=== PATIENT | male | born 1940 | race Caucasian/White ===

== ENCOUNTER 2016-11-09 15:34 | Inpatient (IN) | payer OTHER, MEDICARE ==
[~2016-11-09] VITALS: Ht 185.4 cm; Wt 108.9 kg
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
--- NOTE | 2016-11-09 16:00 | NUR ---
IV EST AND BLOOD WALKED TO LAB. PT EVALUATED BY ABHIJIT.
[2016-11-09 16:07] LABS: ABSOLUTE BASOPHIL COUNT 0.1 /CUMM (0.0-0.2); ABSOLUTE EOSINOPHIL COUNT 0 /CUMM (0.0-0.7); ABSOLUTE GRANULOCYTE CT 14.3 /CUMM (1.4-6.5); ABSOLUTE LYMPH COUNT 2.6 /CUMM (1.2-3.4); ABSOLUTE MONOCYTE COUNT 1.2 /CUMM (0.10-0.60); BASOPHIL % 0.5 % (0.0-2.0); EOSINOPHIL % 0.1 % (0-5); GRANULOCYTE % 78.6 % (42.2-75.2); HEMATOCRIT 47.3 % (42-52); MEAN CORPUSCULAR HGB 30.6 PG (27.0-31.0); MEAN CORPUSCULAR HGB CONC 32.1 G/DL (33.0-37.0); MEAN CORPUSCULAR VOLUME 95.4 FL (80.0-94.0); MEAN PLATELET VOLUME 8.4 FL (7.4-10.4); PLATELET COUNT 213 /CUMM (130-400); RBC DISTRIBUTION WIDTH 16.9 % (11.5-14.5); RED BLOOD CELL CT 4.95 /CUMM (4.70-6.10); WHITE BLOOD CELL COUNT 18.2 /CUMM (4.8-10.8)
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
--- NOTE | 2016-11-09 16:39 | NUR ---
CRITICAL TEST RESULTS [id number] CINDY PALMER 76 M TESTS AND RESULTS: LACTIC ACID 2.2 Results received and read back by: ROSELIA WADE Results received date and time: 11/09/16 4639 The following provider was notified of the results, and read the results back: GIORGIO Notified date and time: 11/09/16 at 1631
--- NOTE | 2016-11-09 17:16 | NUR ---
CARDIZEM GIVEN, HR 130S-180S PRIOR, AFTER CARDIZEM HR 100-170. PCXR AT BEDSIDE. UNASYN INFUSING, PT WAS AGREEABLE TO MED AND OFFERED NO OBJECTION.
--- NOTE | 2016-11-09 17:44 | RADIOLOGY REPORT ---
EXAMINATION: XR PORTABLE CHEST CLINICAL INFORMATION: Altered mental status. COMPARISON: None. TECHNIQUE: Portable frontal view of the chest was obtained. FINDINGS: The lungs are mildly hypoinflated, but otherwise without focal airspace consolidation. No pleural effusions or pneumothoraces are identified. Mediastinal contours are within normal limits. Prominence of the cardiac silhouette may reflect underlying cardiomegaly versus prominence of the cardiac silhouette secondary to portable technique. Soft tissues are unremarkable. No acute osseous abnormality is identified. IMPRESSION: No acute pulmonary process. Prominence of the cardiac silhouette. This may represent underlying cardiomegaly or may be secondary to technique. No overt pulmonary edema.
[2016-11-09] MEDS ORDERED: NARCAN4 MG NAS (18:49)
--- NOTE | 2016-11-09 18:49 | NUR ---
CARDIOLOGY AT BEDSIDE.
[2016-11-09] MEDS ORDERED: LAMICTAL100 M2 PO (18:50)
[2016-11-09] MEDS ORDERED: LASIX40 M1 PO (18:50)
[2016-11-09] MEDS ORDERED: ACEPHEN650 M1 PR (18:51)
[2016-11-09] MEDS ORDERED: LASIX20 M1 PO (18:51)
[2016-11-09] MEDS ORDERED: PHARBETOL325 MG PO (18:52)
[2016-11-09] MEDS ORDERED: MELATONIN3 M4 PO (18:53)
[2016-11-09] MEDS ORDERED: DULCOLAX10 M1 RC (18:54)
[2016-11-09] MEDS ORDERED: MILK OF MA400 MG/52 PO (18:54)
[2016-11-09] MEDS ORDERED: FLEET ENEMA133 ML RC (18:54)
[2016-11-09 18:57] LABS: PTT 30 SEC (25-37)
--- NOTE | 2016-11-09 19:00 | NUR ---
CARDIZEM GTT STARTED AT 5MG/HR, HEPARIN STARTED AT MAX OF 26CC/HR.
--- NOTE | 2016-11-09 19:21 | Cons- Cardiology ---
General Information and HPI Consulting Request Date of Consult: 11/09/16 Requested By: ABHIJIT De Anda Reason for Consult: Rapid atrial fibrillation in a patient who presents with bilateral leg cellulitis. Source of Information: patient, old records Exam Limitations: confusion, poor historian History of Present Illness: The patient is a 76-year-old male who apparently has never been to [facility] before. He was transferred from [facility] for cellulitis of the legs. He carries diagnosis of psychosis, cardiomyopathy, chronic ischemic heart disease, hypertension, heart failure unspecified, hyperlipidemia, unspecified. The patient tells me was hospitalized at [facility] and [facility] in 2002 but he cannot tell me any details or whether he had any cardiac issues at that time. However he does admit to having 3 stents and also a pacemaker. I researched the pacemaker and found that it was implanted in 2008 at the [facility] but other details are unknown. When the patient arrived at the emergency department tonight he was found to be in rapid atrial fibrillation on the monitor. There are no old EKGs for comparison. He has been given Cardizem boluses and started on Cardizem drip and is to be started on heparin drip. The patient denies any chest pain or shortness of breath or palpitations. He cannot give a coherent history of his cellulitis either. Allergies/Medications Allergies: Coded Allergies: atorvastatin (UNKNOWN 11/09/16) ramipril (UNKNOWN 11/09/16) Home Med List: Acetaminophen (Acephen) 650 MG SUPP.RECT 1 SUPP NM Q6H PRN PAIN/TEMP>101 ( Reported) Acetaminophen (Pharbetol) 325 MG TABLET 2 TAB PO Q6H PRN PAIN/TEMP>101 ( Reported) Bisacodyl (Dulcolax) 10 MG SUPP.RECT 1 SUP RC DAILY PRN CONSTIPATION ( Reported) Furosemide (Lasix) 20 MG TABLET 1 TAB PO 14OO CHF (Reported) Furosemide (Lasix) 40 MG TABLET 1 TAB PO DAILY DIURETIC (Reported) Lamotrigine (Lamictal) 100 MG TABLET 1 TAB PO DAILY ? / PSYCHOSIS/SEIZURES ( Reported) Magnesium Hydroxide (Milk Of Magnesia) 400 MG/5 ML ORAL.SUSP 30 ML PO Q3D PRN CONSTIPATION (Reported) Melatonin 3 MG TABLET 1 TAB PO DAILY PRN SUPPLEMENT (Reported) Na Phos,M-B/Na Phos,Di-Ba (Fleet Enema) 19 GRAM-7 GRAM/118 ML ENEMA 1 E RC PRN CONSTIPATION (Reported) Naloxone HCl (Narcan) 4 MG/ACTUATION SPRAY 4 MG ALISON AD PRN OPIOID INDUCED RESP. DEPRESSIO (Reported) Review of Systems Review of Systems: Unobtainable from the patient at this time Past History Travel History Traveled to [place] past 21 day No Medical History Cardiovascular: AFIB, CAD, CHF, Pacemaker Psychiatric: schizophrenia Other Medical Hx: Type 2 diabetes, constipation, unspecified psychosis, cardiomyopathy, chronic ischemic heart disease, heart failure unspecified, hypertension, hyperlipidemia Surgical History Surgical History: unobtainable Psychosocial History Where Do You Live? Long Term Facility Smoking Status: Unknown If Ever Smoked Exam & Diagnostic Data Vital Signs and I&O Vital Signs Date Time Temp Pulse Resp B/P B/P Pulse O2 O2 Flow FiO2 Mean Ox Delivery Rate 11/09 1849 100.0 148 20 164/91 11/09 1848 148 164/91 11/09 1800 100.0 127 20 126/74 11/09 1756 100.0 127 20 126/74 95 Room Air 11/09 1709 167 20 107/83 11/09 1707 126 20 107/83 95 Room Air 11/09 1535 98.6 163 18 113/56 93 Room Air Intake & Output 11/09 1600 11/09 0800 11/09 0000 / 1600 11/08 0800 11/08 0000 Intake Total Output Total Balance Patient 240 lb Weight Physical Exam: This is an obese elderly male who is awake alert but disoriented and confused HEENT exam grossly normal Chest clear to limited exam. There is a pacemaker present in the left upper anterior chest wall. It is well-healed. Heart PMI not palpable, heart sounds soft, rapid irregular rhythm with no murmurs Abdomen is benign Extremities reveal erythema and chronic skin changes from the feet to the knees bilaterally. Labs/Bebo Results: Laboratory Tests 11/09 1557 Chemistry Sodium (137 - 145 mmol/L) 138 Potassium (3.5 - 5.1 mmol/L) 5.0 Chloride (98 - 107 mmol/L) 98 Carbon Dioxide (22 - 30 mmol/L) 28 Anion Gap (5 - 16) 12 BUN (9 - 20 mg/dL) 34 H Creatinine (0.7 - 1.2 mg/dL) 1.4 H Estimated GFR (>60 ml/min) 49 L BUN/Creatinine Ratio (7 - 25 %) 24.3 Glucose (65 - 99 mg/dL) 93 Lactic Acid (0.7 - 2.1 mmol/L) 2.2 H Calcium (8.4 - 10.2 mg/dL) 10.1 Total Bilirubin (0.2 - 1.3 mg/dL) 3.1 H AST (17 - 59 U/L) 25 ALT (21 - 72 U/L) 43 Alkaline Phosphatase (< 127 U/L) 112 Total Protein (6.3 - 8.2 g/dL) 6.5 Albumin (3.5 - 5.0 g/dL) 4.0 Globulin (1.9 - 4.2 gm/dL) 2.5 Albumin/Globulin Ratio (1.1 - 2.2 %) 1.6 Coagulation PT (9.4 - 12.5 SEC) 13.0 H INR (0.90 - 1.17) 1.24 H APTT (25 - 37 SEC) 30 Hematology CBC w Diff NO MAN DIFF REQ WBC (4.8 - 10.8 /CUMM) 18.2 H RBC (4.70 - 6.10 /CUMM) 4.95 Hgb (14.0 - 18.0 G/DL) 15.2 Hct (42 - 52 %) 47.3 MCV (80.0 - 94.0 FL) 95.4 H MCH (27.0 - 31.0 PG) 30.6 RDW (11.5 - 14.5 %) 16.9 H Plt Count (130 - 400 /CUMM) 213 MPV (7.4 - 10.4 FL) 8.4 Gran % (42.2 - 75.2 %) 78.6 H Lymphocytes % (20.5 - 51.1 %) 14.0 L Monocytes % (1.7 - 9.3 %) 6.8 Eosinophils % (0 - 5 %) 0.1 Basophils % (0.0 - 2.0 %) 0.5 Absolute Granulocytes (1.4 - 6.5 /CUMM) 14.3 H Absolute Lymphocytes (1.2 - 3.4 /CUMM) 2.6 Absolute Monocytes (0.10 - 0.60 /CUMM) 1.2 H Absolute Eosinophils (0.0 - 0.7 /CUMM) 0 Absolute Basophils (0.0 - 0.2 /CUMM) 0.1 PUBS MCHC (33.0 - 37.0 G/DL) 32.1 L Diagnostic Data EKG Results EKG shows atrial fibrillation at a rate of 137 with nonspecific T-wave abnormalities and poor R-wave progression. CXR Results PATIENT: CINDY PALMER PRESENT AGE: 76 PATIENT ACCOUNT NO: [id number] : 39 LOCATION: [facility], [place] ORDERING PHYSICIAN: NICOLASA LACEY SERVICE DATE: 11/09/16 EXAM TYPE: RAD - XRY-PORTABLE CHEST XRAY EXAMINATION: XR PORTABLE CHEST CLINICAL INFORMATION: Altered mental status. COMPARISON: None. TECHNIQUE: Portable frontal view of the chest was obtained. FINDINGS: The lungs are mildly hypoinflated, but otherwise without focal airspace consolidation. No pleural effusions or pneumothoraces are identified. Mediastinal contours are within normal limits. Prominence of the cardiac silhouette may reflect underlying cardiomegaly versus prominence of the cardiac silhouette secondary to portable technique. Soft tissues are unremarkable. No acute osseous abnormality is identified. IMPRESSION: No acute pulmonary process. Prominence of the cardiac silhouette. This may represent underlying cardiomegaly or may be secondary to technique. No overt pulmonary edema. DICTATED BY: MARAL MELTON MD DATE/TIME DICTATED:11/09/161739 ASSISTANT CHILD CARE TEACHER:JETHRO DATE/TIME TRANSCRIBED:11/09/161739 CONFIDENTIAL, DO NOT COPY WITHOUT APPROPRIATE AUTHORIZATION. <Electronically signed in Other Vendor System> SIGNED BY: MARAL MELTON MD 11/09/161743 Assessment/Plan Assessment/Plan The patient is a 76-year-old man who presents with cellulitis. He was found somewhat incidentally to have rapid atrial fibrillation on the monitor. There is an alleged history of heart disease on the W-10 but the patient can give no coherent details. He has marked cardiomegaly on his chest x-ray but no evidence of congestive heart failure. There is also a pacemaker present on the chest x- ray about which no details are known regarding the indications. However I was able to find out that this device was implanted on 10/17/2008 at the [facility] in [place]. It is a [employer]tronic dual chamber device, Adapta [id number], S# [id number]. At this point the recommendation is to control his heart rate with intravenous Cardizem. He has also been started on IV heparin, which is reasonable. An echocardiogram will be very helpful in sorting out his cardiac status. I would make significant efforts to get some old records on him either through the family, the retirement or trying [facility] and the [facility] where he was apparently hospitalized previously. I will interrogate his pacemaker to determine battery life etc. Consult Acknowledgment - Thank you for your consult request.
--- NOTE | 2016-11-09 19:53 | NUR ---
BED ASSIGNMENT [id number]
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
--- NOTE | 2016-11-09 21:55 | Admission Certification ---
Admission Certification Certification Statement - As attending physician, I certify that at the time of - admission, based on clinical presentation, severity of - symptoms, need for further diagnostic testing and - therapeutic interventions, and risk of adverse outcomes - without in-hospital treatment, in my clinical assessment, - this patient requires an acute hospital stay for a minimum - of two nights or longer. I have also considered psychsocial - factors such as support system, advanced age, financial - issues, cognitive issues, and failed out-patient treatments, - past re-admission history, safety of patient, and lack of - compliance as applicable. Specific rationale supporting this admission is: Atrial fibrillation with rapid ventricular response. Sepsis secondary to RLE cellulitis.
--- NOTE | 2016-11-09 22:00 | NUR ---
HOUSE STAFF AT BEDSIDE. ONGOING LABILE HR 110S-150S, LOPRESSOR GIVEN, HR SOMEWHAT IMPROVED TO 100S-150S. CARDIZEM AT 7.5, WILL CONT THIS FOR NOW. HOUSE STAFF MADE AWARE OF NEW INFORMATION ABOUT MEDICAL HX AND THAT PT IS CONSERVED BY [facility]. BIPEDAL PULSES DOPPLERABLE AT THIS TIME. CELLULTIS AREAS OUTLINED. PT CONTS TO REFUSE TO CHANGE INTO GOWN, REFUSES TO ALLOW FULL SKIN CHECK AND REFUSES GUIAC.
--- NOTE | 2016-11-09 22:29 | NUR ---
MEDICATED WITH LASIX/APAP PER EMAR. AFTER LOPRESSOR HR 110S-150S. PER DR MARROQUIN, WOULD INCREASE CARDIZEM GTT TO 10MG/HR IF HR OVER 140S. HR IS VARIABLE, BP HAS DECREASED AND PT BEING TREATED FOR FEVER WITH HOPE OF ALSO REDUCING HR, SO CARDIZEM CONTS AT 7.5 AT THIS TIME. REPORT CALLED TO [facility] [address] AND BED IS READY. PT GIVEN MANY CUPS OF ORANGE JUICE WHILE AWAITING BOX LUNCH.
--- NOTE | 2016-11-09 22:50 | NUR ---
TRANSPORT AT BEDSIDE. PT REFUSING TRANSPORT UNTIL PROVIDED WITH MULTIPLE CONTAINERS OF JUICE. EATING BOX LUNCH. CONTS TO REFUSE GOWN, "THEY'RE USELESS," CONTS TO REQUEST DOWN JACKET.
[2016-11-09 23:15] VITALS: BP 100/64
--- NOTE | 2016-11-10 00:04 | History & Physical ---
VIKY MONTALVO 11/10/16 0004: General Information and HPI MD Statement: I have seen and personally examined CINDY PALMER and documented this H&P. The patient is a 76 year old M who presented with a patient stated chief complaint of lower extremity cellulitis Source of Information: patient, family, old records Exam Limitations: confusion, poor historian History of Present Illness: 76-year-old gentleman from [facility] with past medical history significant for seizure disorder on Lamictal, chronic lower extremity swelling, A. fib, CABG status post multiple stents placements, PPM, Cardiomyopathy, chronic ischemic heart disease, hypertension, heart failure, history of previous strokes, hyperlipidemia and paranoid delusions was sent by the facility for worsening right lower extremity cellulitis which was treated with 10 day course of Keflex (ended October 22) as outpatient. On interview he was a poor historian as he would answer most of the questions however would go tangential about the government and how the drugs are "poisoning him". He reported that his legs felt hot since the past 2-3 days and he is unable to walk. At baseline he is independent. Endorses chills as well. He denied chest pain, palpitations, subjective fevers, shortness of breath, bowel and bladder symptoms. Collateral history was obtained from his daughter Sade [[phone]], his conservator who stated he lived with her about a year ago until his paranoid delusions and his dementia worsened and he was [facility] [place] a year last yearago. A few months ago he was sent to [facility] because of some electrical issue at the [facility]. Patient then refused to return to the other facility. She stated that he has been very noncompliant with most of his medications. He has history of A. fib and his bilingual instructor at the [facility] attempted to give multiple medications, however patient stopped taking them last year. He is also seen by psychiatry at the [facility] and was given antipsychotics which the patient also refused to take. Called and spoke to [facility] nursing nut processing supervisor Kaylee, confirmed patient was given a course of Keflex which he was compliant with and also that bilateral Doppler of lower extremities was done on Tuesday which revealed to be negative for DVT. Bilateral Arterial Doppler was also done showed moderate peripheral vascular disease. Allergies/Medications Allergies: Coded Allergies: atorvastatin (UNKNOWN 11/09/16) ramipril (UNKNOWN 11/09/16) Home Med list Acetaminophen (Acephen) 650 MG SUPP.RECT 1 SUPP OK Q6H PRN PAIN/TEMP>101 ( Reported) Acetaminophen (Pharbetol) 325 MG TABLET 2 TAB PO Q6H PRN PAIN/TEMP>101 ( Reported) Bisacodyl (Dulcolax) 10 MG SUPP.RECT 1 SUP RC DAILY PRN CONSTIPATION ( Reported) Furosemide (Lasix) 20 MG TABLET 1 TAB PO 14OO CHF (Reported) Furosemide (Lasix) 40 MG TABLET 1 TAB PO DAILY DIURETIC (Reported) Lamotrigine (Lamictal) 100 MG TABLET 1 TAB PO DAILY ? / PSYCHOSIS/SEIZURES ( Reported) Magnesium Hydroxide (Milk Of Magnesia) 400 MG/5 ML ORAL.SUSP 30 ML PO Q3D PRN CONSTIPATION (Reported) Melatonin 3 MG TABLET 1 TAB PO DAILY PRN SUPPLEMENT (Reported) Na Phos,M-B/Na Phos,Di-Ba (Fleet Enema) 19 GRAM-7 GRAM/118 ML ENEMA 1 E RC PRN CONSTIPATION (Reported) Naloxone HCl (Narcan) 4 MG/ACTUATION SPRAY 4 MG ALISON AD PRN OPIOID INDUCED RESP. DEPRESSIO (Reported) Compliance With Home Meds: POOR Past History Travel History Traveled to [place] past 21 day No Medical History Cardiovascular: AFIB, cardiomyopathy, myocardial infarction Psychiatric: psychosis Other Medical Hx: Type 2 diabetes, constipation, unspecified psychosis, cardiomyopathy, chronic ischemic heart disease, heart failure unspecified, hypertension, hyperlipidemia Isolation History: Standard Surgical History Surgical History: non-contributory Past Family/Social History Psychosocial History Where do you live? [facility] Facility Smoking Status: Former Smoker ETOH Use: denies use Name of POA/HCP: sade Functional Ability ADLs Independent: dressing, eating, toileting, bathing. Ambulation: independent IADLs Needs Assist: shopping, housework, finances, food prep, telephone, transportation, medication admin. Review of Systems Review of Systems Constitutional: Reports: chills. Denies: diaphoresis, fever, malaise, weakness, unexplained weight loss. Cardiovascular: Denies: chest pain, edema, orthopena, palpitations, peripheral edema, syncope. Respiratory: Denies: no symptoms, see HPI, cough, hemoptysis, orthopnea, short of breath, sputum production, stridor, wheezing. Exam & Diagnostic Data Last 24 Hrs of Vital Signs/I&O Vital Signs Date Time Temp Pulse Resp B/P B/P Pulse O2 O2 Flow FiO2 Mean Ox Delivery Rate 11/09 2315 99.1 132 20 100/64 94 Room Air 11/09 2229 100.8 11/09 2228 100.8 137 18 100/54 98 Room Air 11/09 2157 100.8 137 20 122/56 95 Room Air 11/09 2146 100.8 137 20 122/56 11/09 2104 100.1 127 18 134/87 95 Room Air 11/09 1849 100.0 148 20 164/91 / 1848 148 164/91 11/09 1800 100.0 127 20 126/74 / 1756 100.0 127 20 126/74 95 Room Air / 1730 94 11/09 1709 167 20 107/83 / 1707 126 20 107/83 95 Room Air / 1535 98.6 163 18 113/56 93 Room Air Intake & Output 11/10 0800 11/10 0000 11/09 1600 Intake Total Output Total 400 Balance -400 Output, Urine 400 Patient 240 lb Weight Physical Exam General Appearance Alert, Oriented X3, Cooperative, No Acute Distress Skin b/l LE venous stasis skin changes noted. Erythma of RLE with increased warmth to above knee. Skin Temp/Moisture Exam: Warm/Dry HEENT Atraumatic, PERRLA, EOMI, dry mucous membranes Neck Supple, +2 Carotid Pulse wo Bruit Lymphatic Cervical nl Cardiovascular Normal S1, Normal S2, tachycardic, irregularly regular Lungs Clear to Auscultation, Normal Air Movement Abdomen Soft, No Tenderness, distended Extremities b/l LE swelling upto to below knee Vascular pulses heard through doppler Body Front and Back (Adult) 1) Last 24 Hrs of Labs/Bebo: Laboratory Tests 11/09/162226: Urinalysis MOD H, Urine Color YEL, Urine Clarity CLEAR, Urine pH 6.0, Ur Specific Alton 1.025, Urine Protein 30 H, Urine Ketones NEG, Urine Nitrite NEG, Urine Bilirubin NEG, Urine Urobilinogen 0.2, Ur Leukocyte Esterase NEG, Ur Microscopic SEDIMENT EXAMINED, Urine RBC RARE, Ur Epithelial Cells RARE, Hyaline Casts 3-5 H, Urine Mucus FEW, Urine Hemoglobin NEG, Urine Glucose NEG 06/06/17 2203: Troponin I 0.07 11/09/16 195: Lactic Acid 1.5 11/09/16 1557: Anion Gap 12, Estimated GFR 49 L, BUN/Creatinine Ratio 24.3, Glucose 93, Hemoglobin A1c Pending, Lactic Acid 2.2 H, Calcium 10.1, Total Bilirubin 3.1 H , AST 25, ALT 43, Alkaline Phosphatase 112, Troponin I 0.08, Total Protein 6.5, Albumin 4.0, Globulin 2.5, Albumin/Globulin Ratio 1.6, PT 13.0 H, INR 1.24 H, APTT 30, CBC w Diff NO MAN DIFF REQ, RBC 4.95, MCV 95.4 H, MCH 30.6, RDW 16.9 H, MPV 8.4, Gran % 78.6 H, Lymphocytes % 14.0 L, Monocytes % 6.8, Eosinophils % 0.1, Basophils % 0.5, Absolute Granulocytes 14.3 H, Absolute Lymphocytes 2.6, Absolute Monocytes 1.2 H, Absolute Eosinophils 0, Absolute Basophils 0.1, PUBS MCHC 32.1 L Microbiology 11/09 1612 BLOOD: Blood Culture - RECD 11/09 155 BLOOD: Blood Culture - RECD Diagnostic Data EKG Results EKG shows atrial fibrillation at a rate of 137 with nonspecific T-wave abnormalities and poor R-wave progression. CXR Results PATIENT: CINDY PALMER PRESENT AGE: 76 PATIENT ACCOUNT NO: [id number] : 39 LOCATION: [facility] ORDERING PHYSICIAN: NICOLASA LACEY SERVICE DATE: 11/09/16 EXAM TYPE: RAD - XRY-PORTABLE CHEST XRAY EXAMINATION: XR PORTABLE CHEST CLINICAL INFORMATION: Altered mental status. COMPARISON: None. TECHNIQUE: Portable frontal view of the chest was obtained. FINDINGS: The lungs are mildly hypoinflated, but otherwise without focal airspace consolidation. No pleural effusions or pneumothoraces are identified. Mediastinal contours are within normal limits. Prominence of the cardiac silhouette may reflect underlying cardiomegaly versus prominence of the cardiac silhouette secondary to portable technique. Soft tissues are unremarkable. No acute osseous abnormality is identified. IMPRESSION: No acute pulmonary process. Prominence of the cardiac silhouette. This may represent underlying cardiomegaly or may be secondary to technique. No overt pulmonary edema. DICTATED BY: MARAL MELTON MD DATE/TIME DICTATED:11/09/161739 PRIVATE HOUSEHOLD WORKER:JETHRO DATE/TIME TRANSCRIBED:11/09/161739 CONFIDENTIAL, DO NOT COPY WITHOUT APPROPRIATE AUTHORIZATION. <Electronically signed in Other Vendor System> SIGNED BY: MARAL MELTON MD 11/09/161743 Assessment/Plan Assessment: 76-year-old gentleman from [facility] with past medical history significant for seizure disorder on Lamictal, chronic lower extremity swelling, A. fib, CABG status post multiple stents placements, PPM, Cardiomyopathy, chronic ischemic heart disease, hypertension, heart failure, history of previous strokes, hyperlipidemia and paranoid delusions was sent by the facility for worsening right lower extremity cellulitis which was treated with 10 day course of Keflex (ended October 22) as outpatient. Found to be in A. fib with rapid ventricular rate , febrile with leukocytosis, no bandemia, elevated lactic acid,chest x-ray shows no acute pathology. UA neg for infection. In ED he was given 3 boluses of IV Cardizem after which IV Cardizem drip was started, IV heparin was also started. 1 L normal saline and one dose of IV Unasyn was given. Will admit him to the telemetry floor for A.fib with rapid ventricular response and outpatient failure of cellulitis. Problem list: A. fib with rapid ventricular rate Sepsis secondary to right lower extremity cellulitis Seizure disorder CHF Permanent pacemaker Chronic bilateral leg swelling Moderate peripheral vascular disease Hypertension Hyperlipidemia Psychosis/dementia Plan: Admit to telemetry floor for continuous cardiac monitoring, vitals per protocol Continued to be tachycardic to the 160s, and his Cardizem drip was increased to 7.5 and he was also given IV 5 mg of metoprolol f/up echocardiogram Cardiology following patient, Dr. Farias will interrogate his pacemaker. Positive Sepsis criteria secondary to most likely cellulitis, lactic acid trended down to normal Start IV cefazolin 1 g every 8, follow-up blood cultures Continue home meds of Lamictal, Lasix Please obtain records from the [facility] as well as [facility]. Psych consult in am DVT ppx with IV heparin full code As Ranked By This Provider Problem List: 1. Cellulitis of lower extremity 2. Atrial fibrillation, rapid Core Measures/Miscellaneous Acute Coronary Syndrome ACS Diagnosis: No Cerebrovascular Accident CVA/TIA Diagnosis: No Congestive Heart Failure CHF Diagnosis: No VTE (View Protocol) VTE Risk Factors: Acute medical illness, Age > 40, Obesity No [facility] VTE prophylaxis d/t: LE Edema, Peripheral vascular Dx No VTE Pharm Prophylaxis d/t: No contraindications VTE Diagnosis: No VTE Type: NONE VTE Confirmed by (Test): NONE Sepsis (View Protocol) Severe Sepsis Present: No Septic Shock Septic Shock Present: No Miscellaneous Documentation Attending Case Discussed With: CARLA MARROQUIN MD Primary Care Physician: CHARITY MCCULLOUGH MD Patient sees these Specialists none Level of Patient Care: Telemetry UL JOSHUA CHAN,[facility] 11/10/16 0056: Resident Review Statement Resident Statement: examined this patient, discussed with video production intern, agreed with video production intern, discussed with family, reviewed EMR data (avail) Other Findings: 76-year-old man with past medical history significant for atrial fibrillation, ischemic heart disease status post stent placement, history of stroke, cardiomyopathy, hypertension, hyperlipidemia, status post pacemaker placement 2008, psychosis with paranoid delusions, remote history of diabetes not on any medications, CVA disorder, bilateral lower extremity venous insufficiency, history of recurrent cellulitis recently treated with 10 days off that he finished on October 26, noncompliant with medications was sent from [facility] to [facility] for the first time for lower extremity redness and edema. Vitals in emergency department, patient febrile with a MAXIMUM TEMPERATURE of 100.8, significant tachycardia heart rate running in 130s to 150s, systolic blood pressure in 100s and diastolic in the 60 to 50s, oxygen saturation 94-98% on room air Patient was alert and oriented to time person and place. Patient was not coherent in providing the details about his history and started discussing about his delusions. S1 and S2 audible without any murmurs, pacemaker palpated on the upper side of the left chest, overall clear lungs, benign abdominal examination, bilateral lower extremity swelling 3-4+, skin breakdown erythema and warmth on the right lower extremity, feeble pulses, onychomycosis of both right and left feet nails, grossly intact neurological examination. Labs were significant for leukocytosis of 18.2, no significant electrolyte abnormality other than chronic renal insufficiency BUN 34 and creatinine 1.4, lactic acid of 2.2, negative troponin. EKG significant for atrial fibrillation with RVR. Patient was admitted on telemetry so for the management of following problems Atrial fibrillation with RVR Most likely cause CHF ( No baseline Echo and BNP ) vs uncontrolled HTN ? ACS ( Negative Troponins and No ST changes on EKG) VS vs unlikely Hyperthyroidism. - Admit to Telemetry - Vitals Q shift - Repeat EKG and troponin - Check and Follow PT/INR, PTT - Continue Cardizem drip and I just according to the heart rate - Adjust Lopressor dose as per HR, Hold if less than 60. - Check Guiac stool ( Patient Refused Guiac in ED) - Anitcoagulate with IV Heparin Drip - Monitor HR and Rhythm - Echo ordered - Thyroid function was recently checked in August 2016 Sepsis secondary to Right lower extremity cellulitis/lactic acidosis This is patient's first admission to [facility]. We do not have the records from the previous admissions. We will obtain records as patient has been treated multiple times for recurrent cellulitis most likely secondary to chronic venous insufficiency in the setting of skin breakdown and significant onychomycosis.Patient should be treated on an outpatient basis with terbinafine for onychomycosis. We will currently treat patient cellulitis with IV cefazolin. Elevation of the right leg.Blood cultures were sent in ED. We contacted the facility and it was toward that patient recently underwent a Doppler ultrasound to rule out DVT but there was some degree of peripheral vascular disease noticed on Doppler. Patient's lactic acid was 2.2 the second due to type I because of hypoperfusion which with mild hydration came down to 1.5. Patient is on pain pathway Patient is full code Patient is on heart healthy diet Patient is on heparin for DVT prophylaxis LOPEZ CHAN, [facility] 11/10/16 0129: Attending MD Review Statement Attending Statement Attending MD Statement: examined this patient, discuss w/resident/PA/FIELD SERVICE TECH, agreed w/resident/PA/FIELD SERVICE TECH Attending Assessment/Plan: 76 yo M who mainly follows at the [facility], has a h/o CAD s/p CABG and stent, Afib not on AC, s/p PPM, T2DM, HTN, CKD stage 3A, seizure, cardiomyopathy, ?CHF, psychosis with paranoid delusions, venous insufficiency, was sent in from [facility] for LE cellulitis. He reports being treated with Keflex for LE cellulitis, antibiotic course ended on October 26. He also had an arterial doppler which showed PVD and venous doppler that ruled out DVT. Patient does not provide much history and is averse to us giving him antibiotics as he thinks the drugs poison him. Daughter reports patient is noncompliant with his medications. Vitals: Tmax 100.8, HR 150-160's, BP 134/87, sats 98% RA. LE: b/l chronic venous stasis dermatitis, onchomycosis, bilateral 3+ edema, RLE: warm, tender, erythematous with a few areas of skin breakdown with minimal serous discharge. LLE: no warmth but chronic skin changes. Pulses are feeble. Labs: WBC 18.2, INR 1.24, BUN 34, creat 1.4 (baseline), lactic acid 2.2 --> 1.5, trop neg. UA clear. CXR: cardiomegaly, no edema. EKG: Afib @ 137. Echo: none available. 1. Atrial fibrillation with rapid ventricular response, this is most likely in the setting of sepsis from cellulitis. Tele admit, rate control with IV cardizem drip, uptitrate based on HR to keep HR < 110, serial EKG and troponin, IV metoprolol 5 mg given, IV heparin per PTT protocol, guaiac all stools, monitor H /H and platelet while on heparin. Echo, Cardio Dr. Farias seen patient in ER. Plan to interrogate PPM in AM. Please obtain records from [facility]. 2. Sepsis 2/2 RLE cellulitis. Elevate RLE, panculture, IV lasix 20 once followed by home PO dose in AM, IV cefazolin. Obtain doppler results from [facility]. Onychomycosis required prolonged treatment. Obtain wound consult. 3. He has a nonproductive cough, but his CXR does not suggest consolidation and his sats are good on RA. Will give nebs and cough suppressants. DVT ppx IV heparin. Full code.
[2016-11-10 01:36] LABS: PTT 69 SEC (25-37)
[2016-11-10 08:01] LABS: ABSOLUTE BASOPHIL COUNT 0 /CUMM (0.0-0.2); ABSOLUTE EOSINOPHIL COUNT 0 /CUMM (0.0-0.7); ABSOLUTE GRANULOCYTE CT 11.2 /CUMM (1.4-6.5); ABSOLUTE LYMPH COUNT 2.7 /CUMM (1.2-3.4); ABSOLUTE MONOCYTE COUNT 1.5 /CUMM (0.10-0.60); BASOPHIL % 0.3 % (0.0-2.0); EOSINOPHIL % 0.1 % (0-5); GRANULOCYTE % 72.3 % (42.2-75.2); MEAN CORPUSCULAR HGB 30.8 PG (27.0-31.0); MEAN CORPUSCULAR HGB CONC 32.3 G/DL (33.0-37.0); MEAN CORPUSCULAR VOLUME 95.4 FL (80.0-94.0); MEAN PLATELET VOLUME 8.9 FL (7.4-10.4); PLATELET COUNT 194 /CUMM (130-400); RBC DISTRIBUTION WIDTH 16.5 % (11.5-14.5); WHITE BLOOD CELL COUNT 15.4 /CUMM (4.8-10.8)
[2016-11-10 08:06] VITALS: BP 130/70
--- NOTE | 2016-11-10 10:34 | PN- Cardiology ---
Subjective Subjective: The patient remains in atrial fibrillation. His rate is better controlled on Cardizem drip. His rate is in the 90s to low 100s. He is in no distress. He is receiving antibiotics. His temperature is coming down. Additional information from the daughter contained in the resident's note indicates he has been noncompliant with cardiac treatment in the past and has known atrial fibrillation. I interrogated his pacemaker, which is a [employer] dual-chamber pacemaker implanted 10/17/2008. According to the pacemaker, he has is been in atrial fibrillation permanently since at least May 2016. There is at least one and probably as much as 3 years remaining on the battery. The indication for pacemaker implantation was sick sinus syndrome. Otherwise the pacemaker is working appropriately but for the most part is not being used because his atrial fibrillation is overriding the pacemaker rate. Objective Vital Signs and I&Os Vital Signs Date Time Temp Pulse Resp B/P B/P Pulse O2 O2 Flow FiO2 Mean Ox Delivery Rate 11/10 0909 87 Room Air 11/10 0806 98.0 77 20 130/70 11/09 2315 99.1 132 20 100/64 94 Room Air 06 2229 100.8 / 2228 100.8 137 18 100/54 98 Room Air / 2157 100.8 137 20 122/56 95 Room Air / 2146 100.8 137 20 122/56 / 2104 100.1 127 18 134/87 95 Room Air / 1849 100.0 148 20 164/91 / 1848 148 164/91 / 1800 100.0 127 20 126/74 / 1756 100.0 127 20 126/74 95 Room Air /06 1730 94 06/06 1709 167 20 107/83 06/06 1707 126 20 107/83 95 Room Air /06 1535 98.6 163 18 113/56 93 Room Air Intake & Output 11/10 1600 11/10 0800 11/10 0000 11/09 1600 11/09 0811/09 0000 Intake Total Output Total 375 400 Balance -375 -400 Output, Urine 375 400 Patient 240 lb Weight Physical Exam: He is in no distress and is calm but again somewhat disoriented HEENT exam is unremarkable Neck veins not distended Carotids normal Chest is clear Heart reveals irregular rhythm with moderate rate and no murmurs and soft heart sounds Abdomen is benign Extremities reveal persistent erythema of both lower legs Current Medications: Current Medications Sig/Jaqueline Start time Last Medication Dose Route Stop Time Status Admin Acetaminophen 0 .STK-MED ONE 11/09 2224 DC IV Acetaminophen 1,000 MG ONCE ONE 11/09 2200 DC 11/09 N/A 1 UNIT IV 11/09 2214 2229 Acetaminophen 650 MG Q6P PRN 11/09 2200 AC PO Ampicillin Sodium/ 0 .STK-MED ONE 11/09 1702 DC Sulbactam Sodium .ROUTE Ampicillin Sodium/ 0 .STK-MED ONE 11/09 1701 DC Sulbactam Sodium .ROUTE Ampicillin Sodium/ 3,000 MG ONCE ONE 11/09 1645 DC 11/09 Sulbactam Sodium IV 11/09 1714 1709 Sodium Chloride 100 ML Bisacodyl 10 MG DAILY NEEDED PRN 11/09 2200 AC IN Cefazolin Sodium 1,000 MG Q8H 11/10 0300 AC 11/10 IV 0518 Diltiazem HCl 0 .STK-MED ONE 11/09 1845 DC IV Diltiazem HCl 0 .STK-MED ONE 11/09 1845 DC .ROUTE Diltiazem HCl 10 MG ONCE ONE 11/09 1830 DC 11/09 IV 11/09 183 1849 Diltiazem HCl 125 MG Q24H 11/09 1830 AC 11/09 Sodium Chloride 100 ML IV 1900 Diltiazem HCl 10 MG ONCE ONE 11/09 1800 DC 11/09 IV PUSH 11/09 1801 1800 Diltiazem HCl 0 .STK-MED ONE 11/09 1753 DC .ROUTE Diltiazem HCl 0 .STK-MED ONE 11/09 1700 DC .ROUTE Diltiazem HCl 10 MG ONCE ONE 11/09 1645 DC 11/09 IV PUSH 11/09 1646 1709 Furosemide 20 MG 1400 11/10 1400 AC PO Furosemide 40 MG DAILY 11/10 1000 AC PO Furosemide 0 .STK-MED ONE 11/09 2225 DC IV Furosemide 20 MG ONCE ONE 11/09 2200 DC 11/09 IV 11/09 220 2229 Heparin Sodium 0 .STK-MED ONE 11/09 1849 DC (Porcine) .ROUTE Heparin Sodium 4,000 UNIT ONCE ONE 11/09 1830 DC 11/09 (Porcine) IV 11/09 1831 1900 Heparin Sodium 25,000 UNIT Q24H 11/09 1830 AC 11/09 (Porcine) IV 1900 Sodium Chloride 500 ML Lamotrigine 100 MG DAILY 11/10 1000 AC PO Magnesium Hydroxide 30 ML Q72H PRN 11/09 2199 AC PO Melatonin 3 MG DAILY NEEDED PRN 11/09 2199 AC PO Metoprolol Tartrate 0 .STK-MED ONE 11/09 2133 DC IV Metoprolol Tartrate 5 MG ONCE ONE 11/09 2129 DC 11/09 IV 11/09 2130 214 Morphine Sulfate 1 MG Q4P PRN 11/09 2199 AC IV Oxycodone HCl 5 MG Q6P PRN 11/09 2199 AC PO Polyethylene Glycol 17 GM DAILY 11/10 2155 AC PO Sodium Chloride 1,000 ML BOLUS ONE 11/09 173 DC 11/09 IV 11/09 1829 1739 Results Last 48 Hrs of Labs/Mics: Laboratory Tests 11/10/16 0615: Anion Gap 9, Estimated GFR 54 L, BUN/Creatinine Ratio 29.2 H, CBC w Diff NO MAN DIFF REQ, RBC 4.50 L, MCV 95.4 H, MCH 30.8, RDW 16.5 H, MPV 8.9, Gran % 72.3, Lymphocytes % 17.5 L, Monocytes % 9.8 H, Eosinophils % 0.1, Basophils % 0.3, Absolute Granulocytes 11.2 H, Abso06/06/1974 lute Lymphocytes 2.7, Absolute Monocytes 1.5 H, Absolute Eosinophils 0, Absolute Basophils 0, PUBS MCHC 32.3 L 11/10/16 0110: APTT 69 H 11/09/167: Urinalysis MOD H, Urine Color YEL, Urine Clarity CLEAR, Urine pH 6.0, Ur Specific [place] 1.025, Urine Protein 30 H, Urine Ketones NEG, Urine Nitrite NEG, Urine Bilirubin NEG, Urine Urobilinogen 0.2, Ur Leukocyte Esterase NEG, Ur Microscopic SEDIMENT EXAMINED, Urine RBC RARE, Ur Epithelial Cells RARE, Hyaline Casts 3-5 H, Urine Mucus FEW, Urine Hemoglobin NEG, Urine Glucose NEG 11/09/16 2203: Troponin I 0.07 11/09/16 1956: Lactic Acid 1.5 11/09/16 1557: Anion Gap 12, Estimated GFR 49 L, BUN/Creatinine Ratio 24.3, Glucose 93, Hemoglobin A1c Pending, Lactic Acid 2.2 H, Calcium 10.1, Total Bilirubin 3.1 H , AST 25, ALT 43, Alkaline Phosphatase 112, Troponin I 0.08, Total Protein 6.5, Albumin 4.0, Globulin 2.5, Albumin/Globulin Ratio 1.6, PT 13.0 H, INR 1.24 H, APTT 30, CBC w Diff NO MAN DIFF REQ, RBC 4.95, MCV 95.4 H, MCH 30.6, RDW 16.9 H, MPV 8.4, Gran % 78.6 H, Lymphocytes % 14.0 L, Monocytes % 6.8, Eosinophils % 0.1, Basophils % 0.5, Absolute Granulocytes 14.3 H, Absolute Lymphocytes 2.6, Absolute Monocytes 1.2 H, Absolute Eosinophils 0, Absolute Basophils 0.1, PUBS MCHC 32.1 L Assessment/Plan Assessment/Plan The patient's heart rate is better controlled on Cardizem drip. It appears as if he is in permanent atrial fibrillation although he was on no rate limiting medications in the custodial facility. I recommend starting him on Cardizem 60 mg every 8 hours and once this takes effect tapering him off of IV Cardizem. I would recommend starting him on an oral anticoagulant such as Eliquis and discontinuing the IV heparin. Hopefully he will agree to take these medications. His echocardiogram will be done today. Continue telemetry? Yes
--- NOTE | 2016-11-10 12:30 | PN- Att Addend ---
Attending Addendum Attending Brief Note Laboratory Tests 11/10/16 0615: Anion Gap 9, Estimated GFR 54 L, BUN/Creatinine Ratio 29.2 H, CBC w Diff NO MAN DIFF REQ, RBC 4.50 L, MCV 95.4 H, MCH 30.8, RDW 16.5 H, MPV 8.9, Gran % 72.3, Lymphocytes % 17.5 L, Monocytes % 9.8 H, Eosinophils % 0.1, Basophils % 0.3, Absolute Granulocytes 11.2 H, Absolute Lymphocytes 2.7, Absolute Monocytes 1.5 H, Absolute Eosinophils 0, Absolute Basophils 0, PUBS MCHC 32.3 L 11/10/16 0110: APTT 69 H 11/09/16 2227: Urinalysis MOD H, Urine Color YEL, Urine Clarity CLEAR, Urine pH 6.0, Ur Specific [place] 1.025, Urine Protein 30 H, Urine Ketones NEG, Urine Nitrite NEG, Urine Bilirubin NEG, Urine Urobilinogen 0.2, Ur Leukocyte Esterase NEG, Ur Microscopic SEDIMENT EXAMINED, Urine RBC RARE, Ur Epithelial Cells RARE, Hyaline Casts 3-5 H, Urine Mucus FEW, Urine Hemoglobin NEG, Urine Glucose NEG 11/09/16 2203: Troponin I 0.07 11/09/16 1956: Lactic Acid 1.5 11/09/16 1557: Anion Gap 12, Estimated GFR 49 L, BUN/Creatinine Ratio 24.3, Glucose 93, Hemoglobin A1c 6.3 H, Lactic Acid 2.2 H, Calcium 10.1, Total Bilirubin 3.1 H, AST 25, ALT 43, Alkaline Phosphatase 112, Troponin I 0.08, Total Protein 6.5, Albumin 4.0, Globulin 2.5, Albumin/Globulin Ratio 1.6, PT 13.0 H, INR 1.24 H, APTT 30, CBC w Diff NO MAN DIFF REQ, RBC 4.95, MCV 95.4 H, MCH 30.6, RDW 16.9 H, MPV 8.4, Gran % 78.6 H, Lymphocytes % 14.0 L, Monocytes % 6.8, Eosinophils % 0.1, Basophils % 0.5, Absolute Granulocytes 14.3 H, Absolute Lymphocytes 2.6, Absolute Monocytes 1.2 H, Absolute Eosinophils 0, Absolute Basophils 0.1, PUBS MCHC 32.1 L Vital Signs Date Time Temp Pulse Resp B/P B/P Pulse O2 O2 Flow FiO2 Mean Ox Delivery Rate 11/10 0909 87 Room Air / 0806 98.0 77 20 130/70 06/06 2315 99.1 132 20 100/64 94 Room Air 06/ 2229 100.8 06/06 2228 100.8 137 18 100/54 98 Room Air 06/ 2157 100.8 137 20 122/56 95 Room Air 06/06 2146 100.8 137 20 122/56 06/06 2104 100.1 127 18 134/87 95 Room Air 06/06 1849 100.0 148 20 164/91 06/06 1848 148 164/91 06/06 1800 100.0 127 20 126/74 06/06 1756 100.0 127 20 126/74 95 Room Air 06/ 1730 94 06/06 1709 167 20 107/83 06/06 1707 126 20 107/83 95 Room Air 06/ 1535 98.6 163 18 113/56 93 Room Air Patient seen and examined at bedside. Discussed with patient the care plan. 76 -year-old male with past medical history of coronary artery disease status post bypass surgery, seizure disorder, history of paranoid delusions who was at [facility] and was sent to the emergency room for cellulitis of the lower extremities. Afib with RVR. Patient in emergency room was also found to be in atrial fibrillation with RVR and was started on heparin drip and Cardizem drip. Currently his rate is better controlled on Cardizem drip and the plan is to switch him to by mouth Cardizem and start him on normal anticoagulation agents. Cellulitis of the lower extremity-we will continue with IV antibiotics as of now and his white count today is 15.4 which is better from admission. Peripheral vascular disease-once patient's cellulitis is better patient will benefit from vascular surgery consult. Psychiatric history-patient still has paranoid delusions and keep stocking about construction estimator and the government trying to poison him. We will get psychiatry consult to evaluate him. Lactic acidosis at admission-his repeat lactic acid has come down.
--- NOTE | 2016-11-10 13:51 | Cons- Wound Care ---
General Information and HPI Consulting Request Date of Consult: 11/10/16 Requested By: JOHN CHAN,ALEX Mirza Reason for Consult: Bilateral leg venous stasis ulcers right lower extremity cellulitis History of Present Illness: Patient is 76-year-old gentleman poor historian admitted because of concerns over right lower extremity cellulitis having failed outpatient antibiotics. His found to be in rapid atrial fibrillation and is now on Cardizem drip. If palliative chronic venous insufficiency and was treated with a course of oral antibiotics in the [facility]. On admission he had evidence of leukocytosis atrial fibrillation with rapid ventricular response. His past history is notable for coronary artery disease pacemaker placement atrial fibrillation chronic venous insufficiency and seizure disorders. Allergies/Medications Allergies: Coded Allergies: atorvastatin (UNKNOWN 11/09/16) ramipril (UNKNOWN 11/09/16) Home Med List: Acetaminophen (Acephen) 650 MG SUPP.RECT 1 SUPP DE Q6H PRN PAIN/TEMP>101 ( Reported) Acetaminophen (Pharbetol) 325 MG TABLET 2 TAB PO Q6H PRN PAIN/TEMP>101 ( Reported) Bisacodyl (Dulcolax) 10 MG SUPP.RECT 1 SUP RC DAILY PRN CONSTIPATION ( Reported) Furosemide (Lasix) 20 MG TABLET 1 TAB PO 14OO CHF (Reported) Furosemide (Lasix) 40 MG TABLET 1 TAB PO DAILY DIURETIC (Reported) Lamotrigine (Lamictal) 100 MG TABLET 1 TAB PO DAILY ? / PSYCHOSIS/SEIZURES ( Reported) Magnesium Hydroxide (Milk Of Magnesia) 400 MG/5 ML ORAL.SUSP 30 ML PO Q3D PRN CONSTIPATION (Reported) Melatonin 3 MG TABLET 1 TAB PO DAILY PRN SUPPLEMENT (Reported) Na Phos,M-B/Na Phos,Di-Ba (Fleet Enema) 19 GRAM-7 GRAM/118 ML ENEMA 1 E RC PRN CONSTIPATION (Reported) Naloxone HCl (Narcan) 4 MG/ACTUATION SPRAY 4 MG ALISON AD PRN OPIOID INDUCED RESP. DEPRESSIO (Reported) Review of Systems Review of Systems: Denies fevers or chills Past History Travel History Traveled to [place] past 21 day No Medical History Neurological: dementia, seizure EENT: NONE Cardiovascular: AFIB, CAD, CHF, Pacemaker Respiratory: NONE Gastrointestinal: CONSTIPATION Hepatic: NONE Renal: nephrolithiasis Musculoskeletal: NONE Psychiatric: schizophrenia Endocrine: diabetes Blood Disorders: NONE Cancer(s): NONE [employer] INSTRUCTOR/Reproductive: NONE Other Medical Hx: Type 2 diabetes, constipation, unspecified psychosis, cardiomyopathy, chronic ischemic heart disease, heart failure unspecified, hypertension, hyperlipidemia Surgical History Surgical History: unobtainable Psychosocial History Where Do You Live? [facility] Smoking Status: Unknown If Ever Smoked ETOH Use: denies use Name of POA/HCP: willie Functional Ability ADLs Independent: dressing, eating, toileting, bathing. Ambulation: independent IADLs Needs Assist: shopping, housework, finances, food prep, telephone, transportation, medication admin. Exam & Diagnostic Data Vital Signs and I&O Vital Signs Result Date Time Pulse Ox 87 11/10 908 O2 Delivery Room Air 11/10 908 B/P 130/70 11/10 805 Temp 98.0 11/10 805 Pulse 77 11/10 805 Resp 20 11/10 805 O2 Flow Rate Room Air 11/10 0800 Intake & Output 11/10 0000 11/09 1600 11/09 0800 Intake Total Output Total 400 Balance -400 Output, Urine 400 Patient 240 lb Weight Exam of his right lower extremity shows there to be evidence of chronic venous stasis there is symmetrical bilateral edema over the right lower extremity is a small approximately 0.5 x 0.5 cm ulcer and over the anterior leg there appears to be a healed venous stasis ulcer. Several excoriations over the left leg. Distal pulses are difficult to palpate Assessment/Plan Impression/Plan: 76-year-old gentleman with chronic venous insufficiency coronary disease cardiomyopathy congestive heart failure admitted with persistent right leg erythema and discomfort associated with leukocytosis. Recommend leg elevation. Wounds can be dressed with Xeroform daily and wound cleansing. Obtain bilateral arterial ultrasounds to exclude comp getting peripheral vascular disease Consult Acknowledgment - Thank you for your consult request.
--- NOTE | 2016-11-10 15:57 | Event Note ---
Event Note Event Note: Patient admitted overnight for A. fib with rapid ventricular rate in setting of sepsis likely secondary to cellulitis. Afebrile, white count improving, lactic acid improved, right leg and foot less erythematous, swelling slightly improved. Cardiology has recommended to taper off IV Cardizem drip and start patient on oral Cardizem, also recommendation to start patient on novel anticoagulants. Continued to have paranoid ideation, we have placed a psych consult, will follow recommendations.
[2016-11-10 16:10] LABS: PTT 65 SEC (25-37)
[2016-11-10 16:11] VITALS: BP 110/70
--- NOTE | 2016-11-11 03:51 | NUR ---
NURSING NOTE: PT ON HEPARIN GTT. PTT ORDERED FOR 0300. PT REFUSED BLOODWORK AT THIS TIME. DR. VIZCARRA NOTIFIED. PER DR. VIZCARRA OK TO KEEP HEPARIN GTT RUNNING AT CURRENT RATE, AND REATTEMPT TO DRAW BLOODWORK WITH MORNING LABS. NO OTHER ORDERS AT THIS TIME.
--- NOTE | 2016-11-11 07:08 | PN- Housestaff ---
Subjective Follow-up For: Gurpreet tam with RVR Cellulitis Subjective: Patient seen and examined this morning. He was lying comfortably in bed in no acute distress. Complains of pain in his right lower extremity improved as compared to yesterday, remains afebrile, vitals remain within normal limits, labs pending. Patient continues to have paranoid ideations and was agitated, now has one-to- one sitter. Review of Systems Constitutional: Denies: chills, fever. Cardiovascular: Denies: chest pain, palpitations. Respiratory: Denies: cough, short of breath, sputum production. Gastrointestinal: Denies: abdominal pain, constipation, diarrhea, nausea, vomiting. Genitourinary: Denies: dysuria, frequency. Objective Last 24 Hrs of Vital Signs/I&O Vital Signs Date Time Temp Pulse Resp B/P B/P Pulse O2 O2 Flow FiO2 Mean Ox Delivery Rate 11/10 1611 98.3 82 20 110/70 94 / 1600 95 Room Air 11/10 1432 103 110/70 11/10 0909 87 Room Air Intake & Output 11/11 1600 11/11 0800 06/ 0000 Intake Total 518 390 Output Total 300 Balance 518 90 Intake, IV 268 20 Intake, Oral 250 370 Number 0 Bowel Movements Output, Urine 300 Physical Exam General Appearance: Alert, Oriented X3, Cooperative, No Acute Distress Cardiovascular: Regular Rate, Normal S1, Normal S2, No Murmurs Lungs: Clear to Auscultation, Normal Air Movement Abdomen: Normal Bowel Sounds, Soft, No Tenderness Extremities: b/l lle edema, with chronic ulceration, erythema improved, reports tenderness Current Medications: Current Medications Sig/Jaqueline Start time Last Medication Dose Route Stop Time Status Admin Acetaminophen 650 MG Q6P PRN 11/09 2200 AC PO Bisacodyl 10 MG DAILY NEEDED PRN 11/09 2200 AC UT Cefazolin Sodium 1,000 MG Q8H 11/10 0300 AC 11/10 IV 1735 Diltiazem HCl 60 MG Q8 11/11 0730 AC PO Diltiazem HCl 60 MG Q8 11/10 1400 DC 11/10 PO 1432 Diltiazem HCl 125 MG Q24H 11/09 1830 AC 11/10 Sodium Chloride 100 ML IV 1144 Furosemide 20 MG 1400 11/10 1400 AC 11/10 PO 1432 Furosemide 40 MG DAILY 11/10 1000 AC 11/10 PO 1132 Heparin Sodium 25,000 UNIT Q24H 11/09 1830 AC 11/10 (Porcine) IV 1751 Sodium Chloride 500 ML Lamotrigine 100 MG DAILY 11/10 1000 AC 11/10 PO 1131 Magnesium Hydroxide 30 ML Q72H PRN 11/09 2200 AC PO Melatonin 3 MG DAILY NEEDED PRN 11/09 220 AC PO Morphine Sulfate 1 MG Q4P PRN 11/09 220 AC IV Oxycodone HCl 5 MG Q6P PRN 11/09 2200 AC PO Polyethylene Glycol 17 GM DAILY 11/09 2156 AC 11/10 PO 1131 Last 24 Hrs of Lab/Bebo Results Last 24 Hrs of Labs/Mics: Laboratory Tests 11/11/16 0640: Sodium Pending, Potassium Pending, Chloride Pending, Carbon Dioxide Pending, Anion Gap Pending, BUN Pending, Creatinine Pending, BUN/Creatinine Ratio Pending , APTT Pending, CBC w Diff Pending, WBC Pending, RBC Pending, Hgb Pending, Hct Pending, MCV Pending, MCH Pending, RDW Pending, Plt Count Pending, MPV Pending, PUBS MCHC Pending 11/11/16 0300: APTT Cancelled 11/10/16 1420: APTT 65 H Assessment/Plan Assessment: 76-year-old gentleman from [facility] with past medical history significant for seizure disorder on Lamictal, chronic lower extremity swelling, A. fib, CABG status post multiple stents placements, PPM, Cardiomyopathy, chronic ischemic heart disease, hypertension, heart failure, history of previous strokes, hyperlipidemia and paranoid delusions was sent by the facility for worsening right lower extremity cellulitis which was treated with 10 day course of Keflex (ended October 22) as outpatient. Found to be in A. fib with rapid ventricular rate , febrile with leukocytosis, no bandemia, elevated lactic acid,chest x-ray shows no acute pathology. UA neg for infection. In ED he was given 3 boluses of IV Cardizem after which IV Cardizem drip was started, IV heparin was also started. 1 L normal saline and one dose of IV Unasyn was given. Will admit him to the telemetry floor for A.fib with rapid ventricular response and outpatient failure of cellulitis. Problem list: A. fib with rapid ventricular rate Sepsis secondary to right lower extremity cellulitis Seizure disorder CHF Permanent pacemaker Chronic bilateral leg swelling Moderate peripheral vascular disease Hypertension Hyperlipidemia Psychosis/dementia Plan: Afib with RVR: Continuous telemetry monitoring, patient now started on oral Cardizem 60 mg every 8, currently on IV heparin, will switch to eliquis pending psych evaluation to ensure medication compliance. will continue monitoring heart rate. Cellulitis: Right lower extremity, will continue IV cefazolin 1 g every 8, afebrile, white count improving, leg swelling erythema improving. Blood cx have been negative so far. Pending records delivery from [facility] (lle venous and arterial doppler). Will cont lasix for lle. Paranoid Ideation: Continues to have paranoid ideation, accusing staff of poisoning him by giving him meds, pending psyc eval and recommendation. Seizure disorder: will cont lamictal. DVT ppx with IV heparin full code Problem List: 1. Atrial fibrillation, rapid 2. Cellulitis of lower extremity 3. Seizure disorder Pain Ratin Pain Location: Right lower leg Pain Goal: Remain pain free Pain Plan: Tylenol Tomorrow's Labs & Rationales: CBC for platelets monitoring while on heparin and WBC monitoring in setting of sepsis
[2016-11-11 08:10] LABS: ABSOLUTE BASOPHIL COUNT 0 /CUMM (0.0-0.2); ABSOLUTE EOSINOPHIL COUNT 0.2 /CUMM (0.0-0.7); ABSOLUTE GRANULOCYTE CT 8.6 /CUMM (1.4-6.5); ABSOLUTE LYMPH COUNT 2.2 /CUMM (1.2-3.4); ABSOLUTE MONOCYTE COUNT 1.3 /CUMM (0.10-0.60); BASOPHIL % 0.3 % (0.0-2.0); EOSINOPHIL % 1.3 % (0-5); GRANULOCYTE % 70.3 % (42.2-75.2); HEMATOCRIT 41.8 % (42-52); MEAN CORPUSCULAR HGB 30.8 PG (27.0-31.0); MEAN CORPUSCULAR HGB CONC 32.5 G/DL (33.0-37.0); MEAN CORPUSCULAR VOLUME 94.7 FL (80.0-94.0); MEAN PLATELET VOLUME 8.9 FL (7.4-10.4); PLATELET COUNT 206 /CUMM (130-400); RBC DISTRIBUTION WIDTH 16.1 % (11.5-14.5); RED BLOOD CELL CT 4.42 /CUMM (4.70-6.10); WHITE BLOOD CELL COUNT 12.3 /CUMM (4.8-10.8)
[2016-11-11 08:24] LABS: PTT 60 SEC (25-37)
[2016-11-11 08:42] VITALS: BP 102/70
--- NOTE | 2016-11-11 08:48 | PN- Wound Care ---
Subjective Subjective: Patient has no complaints is tolerating leg elevation Objective Vital Signs and I&Os Vital Signs Result Date Time Pulse Ox 93 11/11 841 B/P 102/70 11/11 841 O2 Delivery Room Air 11/11 841 Temp 96.9 11/11 841 Pulse 142 11/11 841 Resp 20 11/11 841 O2 Flow Rate Room Air 11/10 0800 Intake & Output / 0000 11/10 1600 11/10 0800 Intake Total 390 900 Output Total 300 375 Balance 90 900 -375 Intake, IV 20 300 Intake, Oral 370 600 Number 1 Bowel Movements Output, Urine 300 375 Extremity edema is improved with leg elevation erythema appears to be somewhat improved. Right lower extremity venous stasis ulcers have clean red fill. Impression/Plan Impression/Plan Impression/Plan: 76-year-old gentleman with chronic venous insufficiency coronary disease cardiomyopathy congestive heart failure admitted with persistent right leg erythema and discomfort associated with leukocytosis. Recommend leg elevation. Wounds can be dressed with Xeroform daily and wound cleansing. Obtain bilateral arterial ultrasounds to exclude comp getting peripheral vascular disease. Continue current wound care regimen and follow-up arterial ultrasound
--- NOTE | 2016-11-11 11:13 | PN- Att Addend ---
Attending MD Review Statement Attending Statement Attending MD Statement: examined this patient, discuss w/resident/PA/ART PREPARATOR, agreed w/resident/PA/ART PREPARATOR, reviewed EMR data (avail), discussed w/nursing, discussed w/ case mgmt Attending Assessment/Plan: Laboratory Tests 11/11/16 0640: Anion Gap 8, Estimated GFR 59 L, BUN/Creatinine Ratio 32.5 H, APTT 60 H, CBC w Diff NO MAN DIFF REQ, RBC 4.42 L, MCV 94.7 H, MCH 30.8, RDW 16.1 H, MPV 8.9 , Gran % 70.3, Lymphocytes % 17.7 L, Monocytes % 10.4 H, Eosinophils % 1.3, Basophils % 0.3, Absolute Granulocytes 8.6 H, Absolute Lymphocytes 2.2, Absolute Monocytes 1.3 H, Absolute Eosinophils 0.2, Absolute Basophils 0, PUBS MCHC 32.5 L 11/11/16 0300: APTT Cancelled 11/10/16 1420: APTT 65 H Vital Signs Date Time Temp Pulse Resp B/P B/P Pulse O2 O2 Flow FiO2 Mean Ox Delivery Rate 11/11 0937 111 102/70 / 0842 96.9 142 20 102/70 93 Room Air 11/10 1611 98.3 82 20 110/70 94 06/07 1600 95 Room Air 11/10 1432 103 110/70 Patient seen and examined at bedside. Discussed with patient the care plan. 76 -year-old male with past medical history of coronary artery disease status post bypass surgery, seizure disorder, history of paranoid delusions who was at [facility] and was sent to the emergency room for cellulitis of the lower extremities. Afib with RVR. Patient in emergency room was also found to be in atrial fibrillation with RVR and was started on heparin drip and Cardizem drip. Currently his rate is better controlled on Cardizem drip and the plan is to switch him to by mouth Cardizem and start him on novel anticoagulation agents but there is concern for compliance. Cellulitis of the lower extremity-we will continue with IV antibiotics as of now and his white count today is 12.3 which is better from admission. Peripheral vascular disease-once patient's cellulitis is better patient will benefit from vascular surgery consult. We will try to get his doppler results which were done at outside facility. Psychiatric history-patient still has paranoid delusions and keep talking about survey analyst and the government trying to poison him. We will get psychiatry consult to evaluate him. Psychiatry to see him today.
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
--- NOTE | 2016-11-11 13:10 | PN- Cardiology ---
Subjective Subjective: The patient is in a chair and comfortable and calm. However apparently he has been refusing some meds. He remains in atrial fibrillation. He remains on Cardizem drip. He was only given one dose of by mouth Cardizem yesterday due to an error. This has been restarted today. He remains on IV heparin. His echocardiogram documented reduced left ventricular systolic function. I suspect that he may have tachycardia-induced cardiomyopathy due to uncontrolled atrial fibrillation although we don't have any evidence of this from the correction notes. Objective Vital Signs and I&Os Vital Signs Date Time Temp Pulse Resp B/P B/P Pulse O2 O2 Flow FiO2 Mean Ox Delivery Rate 11/11 0937 111 102/70 11/11 0842 96.9 142 20 102/70 93 Room Air 11/10 1611 98.3 82 20 110/70 94 / 1600 95 Room Air 11/10 1432 103 110/70 Intake & Output 11/11 1600 11/11 0800 /08 0000 11/10 1600 11/10 0800 11/10 0000 Intake Total 300 518 390 900 Output Total 300 300 375 400 Balance 0 518 90 900 -375 -400 Intake, IV 268 20 300 Intake, Oral 300 250 370 600 Number 0 1 Bowel Movements Output, Urine 300 300 375 400 Physical Exam: He is in no distress Chest is clear Heart reveals irregular rhythm, moderate rate, no murmurs Extremities erythema is improving Current Medications: Current Medications Sig/Jaqueline Start time Last Medication Dose Route Stop Time Status Admin Acetaminophen 650 MG Q6P PRN 11/09 2200 AC PO Bisacodyl 10 MG DAILY NEEDED PRN 11/09 2200 AC NV Cefazolin Sodium 1,000 MG Q8H 11/10 0300 AC 11/12 IV 0248 Diltiazem HCl 60 MG Q8 11/11 0730 AC 11/12 PO 0626 Diltiazem HCl 125 MG Q24H 11/09 1830 AC 11/11 Sodium Chloride 100 ML IV 2155 Furosemide 20 MG 1400 11/10 1400 AC 11/11 PO 1422 Furosemide 40 MG DAILY 11/10 1000 AC 11/12 PO 0630 Haloperidol 0.5 MG BID PRN 11/11 1315 AC PO Heparin Sodium 25,000 UNIT .STK-MED ONE 11/11 1203 DC (Porcine) IV 11/11 1204 Heparin Sodium 25,000 UNIT Q24H 11/09 1830 AC 11/11 (Porcine) IV 1423 Sodium Chloride 500 ML Lamotrigine 100 MG DAILY 11/10 1000 AC 11/12 PO 0630 Magnesium Hydroxide 30 ML Q72H PRN 11/09 2199 AC PO Melatonin 5 MG AT BEDTIME 11/11 2199 AC 11/11 PO 2156 Melatonin 3 MG DAILY NEEDED PRN 11/09 220 AC PO Morphine Sulfate 1 MG Q4P PRN 11/09 2199 AC IV Oxycodone HCl 5 MG Q6P PRN 11/09 220 AC PO Polyethylene Glycol 17 GM DAILY 11/09 215 AC 11/10 PO 1131 Results Last 48 Hrs of Labs/Mics: Laboratory Tests 11/12/16 0610: Anion Gap 8, Estimated GFR 59 L, BUN/Creatinine Ratio 27.5 H, CBC w Diff NO MAN DIFF REQ, RBC 4.45 L, MCV 94.9 H, MCH 30.6, RDW 16.5 H, MPV 8.8, Gran % 67.8, Lymphocytes % 20.6, Monocytes % 8.6, Eosinophils % 2.5, Basophils % 0.5, Absolute Granulocytes 6.3, Absolute Lymphocytes 1.9, Absolute Monocytes 0.8 H, Absolute Eosinophils 0.2, Absolute Basophils 0, PUBS MCHC 32.3 L 11/11/16 1820: APTT 79 H 11/11/16 0640: Anion Gap 8, Estimated GFR 59 L, BUN/Creatinine Ratio 32.5 H, Magnesium 2.1, APTT 60 H, CBC w Diff NO MAN DIFF REQ, RBC 4.42 L, MCV 94.7 H, MCH 30.8, RDW 16.1 H, MPV 8.9, Gran % 70.3, Lymphocytes % 17.7 L, Monocytes % 10.4 H, Eosinophils % 1.3, Basophils % 0.3, Absolute Granulocytes 8.6 H, Absolute Lymphocytes 2.2, Absolute Monocytes 1.3 H, Absolute Eosinophils 0.2, Absolute Basophils 0, PUBS MCHC 32.5 L 11/11/16 0300: APTT Cancelled 11/10/16 1420: APTT 65 H Recent Imaging Studies: PATIENT: CINDY PALMER PRESENT AGE: 76 PATIENT ACCOUNT NO: [id number] : 39 LOCATION: 1NO ORDERING PHYSICIAN: ALBINA SOLIS MD SERVICE DATE: 11/11/16- EXAM TYPE: US - US-EXT BILAT VENOUS DOPPLER EXAMINATION: US TRIPLEX OF LOWER EXTREMITIES, BILATERAL CLINICAL INFORMATION: Leg pain and tenderness COMPARISON: None TECHNIQUE: Color-flow triplex imaging with spectral analysis and compression Doppler were performed on the lower extremities. FINDINGS: Respiratory variation, normal compression and augmented flow are noted throughout the lower extremities. The visualized common femoral vein, superficial femoral vein, profunda femoral vein, popliteal vein and midcalf peroneal and posterior tibial venous segments show no evidence of deep venous thrombosis. There is a 3.6 x 0.8 1.2 cm cyst in the right popliteal fossa. IMPRESSION: No evidence of deep venous thrombosis involving the lower extremities. Right Augustin's cyst. DICTATED BY: HAZEL RUSHING MD DATE/TIME DICTATED:11/11/162013 SYSTEM VALIDATION ENGINEER:JETHRO DATE/TIME TRANSCRIBED:11/11/162013 CONFIDENTIAL, DO NOT COPY WITHOUT APPROPRIATE AUTHORIZATION. <Electronically signed in Other Vendor System> SIGNED BY: HAZEL RUSHING MD 11/11/16 2018 Assessment/Plan Assessment/Plan The patient remains in atrial fibrillation which is probably permanent. His rate is not yet well controlled. We will restart him on oral Cardizem. We're awaiting a psych consult to see how compliant he will be with medications in the future even in the correction. That will determine what medications we put him on including rate limiting medications and anticoagulants. We will follow him along for this. 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 Continue telemetry? Yes
--- NOTE | 2016-11-11 13:32 | ECHOCARDIOGRAM REPORT ---
CINDY PALMER Age: 76 : 1940 Gender: M Exam Date: 11/10/2016 19:24 Exam Location: 1 North Ht (in): 70 Wt (lb): 240 BSA: 2.36 BP: 100 / 64 Ordering Physician: JENNIFER DAVALOS MD Referring Physician: Vishal Farias MD Chief, SoC Technologist: Sierra Mullen [facility] Room Number: 172 Indications: HEART FAILURE Rhythm: Atrial fibrillation Technical Quality: Good FINDINGS Left Ventricle Mild left ventricular dilatation. Mild concentric left ventricular hypertrophy. Left ventricular ejection fraction is estimated at 30-35 %. No obvious regional wall motion abnormalities. Definity contrast was used to improve suboptimal left ventricular endocardial definition. Right Ventricle Right ventricle not well visualized, grossly normal. Catheter/pacemaker wire in the right ventricular cavity. Right Atrium Normal right atrial size. Catheter/pacemaker wire in the right atrial appendage. Left Atrium Moderate left atrial dilatation. Mitral Valve There is mild to moderate thickening of the mitral valve leaflets with somewhat reduced excursion. Moderate mitral regurgitation. Aortic Valve Focal thickening of the aortic valve cusps. No aortic stenosis. Trace to mild aortic regurgitation. Tricuspid Valve Tricuspid valve is normal in structure and function. Mild tricuspid regurgitation. Right ventricular systolic pressure estimated to be elevated at 45-50 mmHg. Pulmonic Valve Pulmonic valve not well visualized, grossly normal. Trace pulmonic regurgitation. Pericardium There is a small nonhemodynamically significant posterior pericardial effusion seen. Great Vessels Normal size aortic root. Dilated IVC CONCLUSIONS Mild left ventricular dilatation. Mild concentric left ventricular hypertrophy. Left ventricular ejection fraction is estimated at 30-35 %. Catheter/pacemaker wire in the right ventricular cavity. Catheter/pacemaker wire in the right atrial appendage. Moderate left atrial dilatation. There is mild to moderate thickening of the mitral valve leaflets with somewhat reduced excursion. Moderate mitral regurgitation. Focal thickening of the aortic valve cusps. No aortic stenosis. Trace to mild aortic regurgitation. Right ventricular systolic pressure estimated to be elevated at 45- 50 mmHg. There is a small nonhemodynamically significant posterior pericardial effusion seen. Dilated IVC. Vishal Farias M.D. (Electronically Signed) Final Date: 11 November 2016 13:31 MEASUREMENTS (Male / Female) Normal Values 2D ECHO LV Diastolic Diameter PLAX 5.5 cm 4.2 - 5.9 / 3.9 - 5.3 cm LV Systolic Diameter PLAX 4.6 cm 2.1 - 4.0 cm LV Fractional Shortening PLAX 16.4 % 25 - 46 % LV Ejection Fraction 2D Teich 34.0 % IVS Diastolic Thickness 1.1 cm LVPW Diastolic Thickness 1.1 cm LV Relative Wall Thickness 0.4 RV Internal Dim ED PLAX 3.1 cm 1.9 - 3.8 cm LVOT Diameter 1.9 cm Aortic Root Diameter 3.2 cm LA Systolic Diameter LX 4.2 cm 3.0 - 4.0 / 2.7 - 3.8 cm LA Volume 90.0 cm 18 - 58 / 22 - 52 cm Ascending Aorta Diameter 3.5 cm DOPPLER AV Peak Velocity 130.0 cm/s AV Peak Gradient 6.8 mmHg AV Mean Velocity 90.4 cm/s AV Mean Gradient 4.0 mmHg AV Velocity Time Integral 24.6 cm LVOT Peak Velocity 66.3 cm/s LVOT Peak Gradient 1.8 mmHg LVOT Mean Velocity 46.9 cm/s LVOT Mean Gradient 1.0 mmHg LVOT Velocity Time Integral 10.8 cm LVOT Stroke Volume 30.6 cm AV Area Cont Eq vti 1.2 cm AV Area Cont Eq pk 1.4 cm MV Peak Velocity 106.0 cm/s MV Peak Gradient 4.5 mmHg MV Mean Velocity 60.3 cm/s MV Mean Gradient 2.0 mmHg Mitral E Point Velocity 84.4 cm/s MV PHT Velocity 108.0 cm/s MV Deceleration [place] 509.0 cm/s MV Pressure Half Time 63.7 ms MV Area PHT 3.5 cm MV Deceleration Time 120.0 ms TR Peak Velocity 301.0 cm/s TR Peak Gradient 36.2 mmHg Right Atrial Pressure 10.0 mmHg Pulmonary Artery Systolic Pressu 46.2 mmHg Right Ventricular Systolic Press 46.2 mmHg PV Peak Velocity 69.2 cm/s PV Peak Gradient 1.9 mmHg PV Mean Velocity 52.8 cm/s PV Mean Gradient 1.0 mmHg PV Velocity Time Integral 13.8 cm LV E' Lateral Velocity 9.1 cm/s Mitral E to LV E' Lateral Ratio 9.3 LV E' Septal Velocity 3.9 cm/s Mitral E to LV E' Septal Ratio 21.6
[2016-11-11 15:30] VITALS: BP 118/68
[2016-11-11 19:39] LABS: PTT 79 SEC (25-37)
--- NOTE | 2016-11-11 20:18 | ULTRASOUND REPORT ---
EXAMINATION: US TRIPLEX OF LOWER EXTREMITIES, BILATERAL CLINICAL INFORMATION: Leg pain and tenderness COMPARISON: None TECHNIQUE: Color-flow triplex imaging with spectral analysis and compression Doppler were performed on the lower extremities. FINDINGS: Respiratory variation, normal compression and augmented flow are noted throughout the lower extremities. The visualized common femoral vein, superficial femoral vein, profunda femoral vein, popliteal vein and midcalf peroneal and posterior tibial venous segments show no evidence of deep venous thrombosis. There is a 3.6 x 0.8 1.2 cm cyst in the right popliteal fossa. IMPRESSION: No evidence of deep venous thrombosis involving the lower extremities. Right Augustin's cyst.
--- NOTE | 2016-11-12 00:29 | NUR ---
2315 ON 11/11/16 PATIENT HAD 6 AND THAN 9 BEATS OF V-TACH RECORDED ON TM. PATIENT SLEEPING SAUNDLY, BP 118/80, HR 88, TEMP 98.8 ORAL, SPO2 86-92% ON RA. PATIENT REFUSED OXYGEN SUPPLEMENT. MD WALKER NOTIFIED, WCTM.
--- NOTE | 2016-11-12 07:34 | PN- Housestaff ---
Subjective Follow-up For: Gurpreet tam with RVR Cellulitis Tele-Events Since Last Visit: 9 beats run of V. tach overnight, a flutter, heart rate ranging between 100-150 Subjective: Patient seen and examined this morning. He was lying comfortably in bed in no acute distress. Continues to have lower extremity edema, he is very reluctant to elevate his legs saying that he puts a lot of pressure on his abdomen been elevating his legs. Has remained afebrile, white count improving, remains on cefazolin, IV heparin, Cardizem drip. He has been giving nursing staff a hard time with medication administration, continues to have paranoia that medications are poisoning him. Review of Systems Constitutional: Denies: chills, fever. Cardiovascular: Denies: chest pain, palpitations. Respiratory: Denies: cough, short of breath, sputum production. Gastrointestinal: Denies: abdominal pain, constipation, diarrhea, nausea, vomiting. Genitourinary: Denies: dysuria, frequency. Objective Last 24 Hrs of Vital Signs/I&O Vital Signs Date Time Temp Pulse Resp B/P B/P Pulse O2 O2 Flow FiO2 Mean Ox Delivery Rate 11/12 1432 117 100/60 11/12 0927 97.8 73 16 110/68 94 Room Air 11/12 0626 104 124/72 11/11 2159 92 120/70 / 1600 93 Room Air 11/11 1530 98.2 75 16 118/68 93 Intake & Output 11/12 1600 11/12 0800 06/ 0000 Intake Total 824 200 400 Output Total 625 625 Balance 199 -425 400 Intake, IV 264 Intake, Oral 560 200 400 Number 0 Bowel Movements Output, Urine 625 625 Physical Exam General Appearance: Alert, Oriented X3, Cooperative, No Acute Distress Cardiovascular: Regular Rate, Normal S1, Normal S2, No Murmurs Lungs: Clear to Auscultation, Normal Air Movement Abdomen: Normal Bowel Sounds, Soft, No Tenderness Extremities: bilateral lower extremity edema 2+, erythema improved, less tender Current Medications: Current Medications Sig/Jaqueline Start time Last Medication Dose Route Stop Time Status Admin Acetaminophen 650 MG Q6P PRN 11/09 2199 AC PO Bisacodyl 10 MG DAILY NEEDED PRN 11/09 220 AC TN Cefazolin Sodium 1,000 MG Q8H 11/10 0300 AC 11/12 IV 1204 Diltiazem HCl 60 MG Q8 11/11 0730 AC 11/12 PO 1432 Diltiazem HCl 125 MG Q24H 11/09 1830 AC 11/11 Sodium Chloride 100 ML IV 2155 Furosemide 40 MG DAILY 11/13 1000 AC IV Furosemide 20 MG ONCE ONE 11/12 1800 AC IV 11/12 1801 Furosemide 20 MG 1400 11/10 1400 DC 11/11 PO 1422 Furosemide 40 MG DAILY 11/10 1000 DC 11/12 PO 0630 Haloperidol 0.5 MG BID 11/12 1032 AC 11/12 PO 1209 Haloperidol 0.5 MG BID PRN 11/11 1315 DC PO Heparin Sodium 25,000 UNIT Q24H 11/09 1830 AC 11/11 (Porcine) IV 1423 Sodium Chloride 500 ML Lamotrigine 100 MG DAILY 11/10 1000 AC 11/12 PO 0630 Magnesium Hydroxide 30 ML Q72H PRN 11/09 2200 AC PO Melatonin 5 MG AT BEDTIME 11/11 2200 AC 11/11 PO 2156 Melatonin 3 MG DAILY NEEDED PRN 11/09 2200 AC PO Morphine Sulfate 1 MG Q4P PRN 11/09 2200 AC IV Oxycodone HCl 5 MG Q6P PRN 11/09 2200 AC PO Patient Medication 1 ED .STK-MED ONE 11/12 1432 ME Teaching ED 11/12 1433 Polyethylene Glycol 17 GM DAILY 11/09 215 AC 11/10 PO 1131 Last 24 Hrs of Lab/Bebo Results Last 24 Hrs of Labs/Mics: Laboratory Tests 11/12/16 1015: APTT 94 H 11/12/16 0610: Anion Gap 8, Estimated GFR 59 L, BUN/Creatinine Ratio 27.5 H, CBC w Diff NO MAN DIFF REQ, RBC 4.45 L, MCV 94.9 H, MCH 30.6, RDW 16.5 H, MPV 8.8, Gran % 67.8, Lymphocytes % 20.6, Monocytes % 8.6, Eosinophils % 2.5, Basophils % 0.5, Absolute Granulocytes 6.3, Absolute Lymphocytes 1.9, Absolute Monocytes 0.8 H, Absolute Eosinophils 0.2, Absolute Basophils 0, PUBS MCHC 32.3 L 11/11/16 1820: APTT 79 H Assessment/Plan Assessment: 76-year-old gentleman from [place] with past medical history significant for seizure disorder on Lamictal, chronic lower extremity swelling, A. fib, CABG status post multiple stents placements, PPM, Cardiomyopathy, chronic ischemic heart disease, hypertension, heart failure, history of previous strokes, hyperlipidemia and paranoid delusions was sent by the facility for worsening right lower extremity cellulitis which was treated with 10 day course of Keflex (ended October 22) as outpatient. Found to be in A. fib with rapid ventricular rate , febrile with leukocytosis, no bandemia, elevated lactic acid,chest x-ray shows no acute pathology. UA neg for infection. In ED he was given 3 boluses of IV Cardizem after which IV Cardizem drip was started, IV heparin was also started. 1 L normal saline and one dose of IV Unasyn was given. Will admit him to the telemetry floor for A.fib with rapid ventricular response and outpatient failure of cellulitis. Problem list: A. fib with rapid ventricular rate Sepsis secondary to right lower extremity cellulitis Seizure disorder CHF Permanent pacemaker Chronic bilateral leg swelling Moderate peripheral vascular disease Hypertension Hyperlipidemia Psychosis/dementia Plan: Afib with RVR: Continuous telemetry monitoring, patient now started on oral Cardizem 60 mg every 8, currently on IV heparin, will switch to eliquis pending psych evaluation to ensure medication compliance. will continue monitoring heart rate. Cellulitis: Right lower extremity, will continue IV cefazolin 1 g every 8, afebrile, white count improving, leg swelling erythema improving. Blood cx have been negative so far. Bilateral lower extremity Doppler negative Will cont IV lasix 40 mg for lower extremity edema. Paranoid Ideation: Continues to have paranoid ideation, accusing staff of poisoning him by giving him meds, pending psyc eval and recommendation. * Haloperidol 0.5 mg twice a day Seizure disorder: will cont lamictal. DVT ppx with IV heparin full code Problem List: 1. Atrial fibrillation, rapid 2. Cellulitis of lower extremity 3. Sepsis 4. Seizure disorder Pain Ratin Pain Location: none Pain Goal: Remain pain free Pain Plan: Mild pain pathway Tomorrow's Labs & Rationales: CBC BP
[2016-11-12 08:20] LABS: ABSOLUTE BASOPHIL COUNT 0 /CUMM (0.0-0.2); ABSOLUTE EOSINOPHIL COUNT 0.2 /CUMM (0.0-0.7); ABSOLUTE GRANULOCYTE CT 6.3 /CUMM (1.4-6.5); ABSOLUTE LYMPH COUNT 1.9 /CUMM (1.2-3.4); ABSOLUTE MONOCYTE COUNT 0.8 /CUMM (0.10-0.60); BASOPHIL % 0.5 % (0.0-2.0); EOSINOPHIL % 2.5 % (0-5); GRANULOCYTE % 67.8 % (42.2-75.2); HEMATOCRIT 42.2 % (42-52); MEAN CORPUSCULAR HGB 30.6 PG (27.0-31.0); MEAN CORPUSCULAR HGB CONC 32.3 G/DL (33.0-37.0); MEAN CORPUSCULAR VOLUME 94.9 FL (80.0-94.0); MEAN PLATELET VOLUME 8.8 FL (7.4-10.4); PLATELET COUNT 221 /CUMM (130-400); RBC DISTRIBUTION WIDTH 16.5 % (11.5-14.5); RED BLOOD CELL CT 4.45 /CUMM (4.70-6.10); WHITE BLOOD CELL COUNT 9.2 /CUMM (4.8-10.8)
[2016-11-12 09:27] VITALS: BP 110/68
--- NOTE | 2016-11-12 10:00 | PN- Cardiology ---
Subjective Subjective: The patient is calm and seemingly cooperative this morning. He remains in atrial fibrillation. His rate is now 80s to 100. His IV Cardizem is being tapered and he is on by mouth Cardizem. He has been seen by psych and has been started on Haldol. He remains on IV heparin He is on by mouth Lasix. Objective Vital Signs and I&Os Vital Signs Date Time Temp Pulse Resp B/P B/P Pulse O2 O2 Flow FiO2 Mean Ox Delivery Rate 11/12 926 97.8 73 16 110/68 94 Room Air 11/12 0626 104 124/72 11/11 2159 92 120/70 11/11 1600 93 Room Air 11/11 1530 98.2 75 16 118/68 93 11/11 1422 100 124/70 Intake & Output 11/12 1600 11/12 0800 11/12 0000 11/11 1600 11/11 0800 11/11 0000 Intake Total 200 400 787 518 390 Output Total 625 300 300 Balance -425 400 487 518 90 Intake, IV 247 268 20 Intake, Oral 200 400 540 250 370 Number 0 0 Bowel Movements Output, Urine 625 300 300 Patient 240 lb Weight Physical Exam: He is in no distress HEENT exam is normal Chest is clear Heart reveals irregular rhythm with normal rate Extremities improving cellulitis of the legs Current Medications: Current Medications Sig/Jaqueline Start time Last Medication Dose Route Stop Time Status Admin Acetaminophen 650 MG Q6P PRN 11/09 2200 AC PO Bisacodyl 10 MG DAILY NEEDED PRN 11/09 2200 AC IN Cefazolin Sodium 1,000 MG Q8H 11/10 0300 AC 11/12 IV 0248 Diltiazem HCl 60 MG Q8 11/11 0730 AC 11/12 PO 0626 Diltiazem HCl 125 MG Q24H 11/09 1830 AC 11/11 Sodium Chloride 100 ML IV 2155 Furosemide 20 MG 1400 11/10 1400 AC 11/11 PO 1422 Furosemide 40 MG DAILY 11/10 1000 AC 11/12 PO 0630 Haloperidol 0.5 MG BID PRN 11/11 1315 AC PO Heparin Sodium 25,000 UNIT .STK-MED ONE 11/11 1203 DC (Porcine) IV 11/11 1204 Heparin Sodium 25,000 UNIT Q24H 11/09 1830 AC 11/11 (Porcine) IV 1423 Sodium Chloride 500 ML Lamotrigine 100 MG DAILY 11/10 1000 AC 11/12 PO 0630 Magnesium Hydroxide 30 ML Q72H PRN 11/09 2199 AC PO Melatonin 5 MG AT BEDTIME 11/11 2199 AC 11/11 PO 2156 Melatonin 3 MG DAILY NEEDED PRN 11/09 2199 AC PO Morphine Sulfate 1 MG Q4P PRN 11/09 2199 AC IV Oxycodone HCl 5 MG Q6P PRN 11/09 2199 AC PO Polyethylene Glycol 17 GM DAILY 11/10 2155 AC 11/10 PO 1131 Results Last 48 Hrs of Labs/Mics: Laboratory Tests 11/12/16 0610: Anion Gap 8, Estimated GFR 59 L, BUN/Creatinine Ratio 27.5 H, CBC w Diff NO MAN DIFF REQ, RBC 4.45 L, MCV 94.9 H, MCH 30.6, RDW 16.5 H, MPV 8.8, Gran % 67.8, Lymphocytes % 20.6, Monocytes % 8.6, Eosinophils % 2.5, Basophils % 0.5, Absolute Granulocytes 6.3, Absolute Lymphocytes 1.9, Absolute Monocytes 0.8 H, Absolute Eosinophils 0.2, Absolute Basophils 0, PUBS MCHC 32.3 L 11/11/16 1820: APTT 79 H 11/11/16 0640: Anion Gap 8, Estimated GFR 59 L, BUN/Creatinine Ratio 32.5 H, Magnesium 2.1, APTT 60 H, CBC w Diff NO MAN DIFF REQ, RBC 4.42 L, MCV 94.7 H, MCH 30.8, RDW 16.1 H, MPV 8.9, Gran % 70.3, Lymphocytes % 17.7 L, Monocytes % 10.4 H, Eosinophils % 1.3, Basophils % 0.3, Absolute Granulocytes 8.6 H, Absolute Lymphocytes 2.2, Absolute Monocytes 1.3 H, Absolute Eosinophils 0.2, Absolute Basophils 0, PUBS MCHC 32.5 L 11/11/16 0300: APTT Cancelled 11/10/16 1420: APTT 65 H Assessment/Plan Assessment/Plan The patient remains in atrial fibrillation which is probably permanent. 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 His rate is now better controlled. I recommend stopping the IV Cardizem. If his rate is not consistently below 100 we can increase the Cardizem dose to 90 mg every 8 hours and/or add beta blockers. I would discontinue the IV heparin and start him on Eliquis. Hopefully he will be more compliant now that he is on Haldol. At some point we should do a limited echo prior to discharge to see if his LV function improves with decrease in his heart rate. Continue telemetry? Yes
--- NOTE | 2016-11-12 10:38 | NUR ---
PATIENT HAD 5 BEAT RUN OF V-TACH. REFUSED TO HAVE VITALS CHECKED. SWORE AND ORDERED STAFF OUT OF ROOM. DR. Alen SOLIS NOTIFIED. NO INTERVENTIONS ORDERED AT THIS TIME. WILL CONTINUE TO MONITOR.
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
[2016-11-12 12:19] LABS: PTT 94 SEC (25-37)
--- NOTE | 2016-11-12 14:07 | PN- Att Addend ---
Attending MD Review Statement Attending Statement Attending MD Statement: examined this patient, discuss w/resident/PA/OFFICE MACHINE SERVICER, agreed w/resident/PA/OFFICE MACHINE SERVICER, reviewed EMR data (avail), discussed w/nursing, discussed w/ case mgmt Attending Assessment/Plan: Laboratory Tests 11/12/16 1015: APTT 94 H 11/12/16 0610: Anion Gap 8, Estimated GFR 59 L, BUN/Creatinine Ratio 27.5 H, CBC w Diff NO MAN DIFF REQ, RBC 4.45 L, MCV 94.9 H, MCH 30.6, RDW 16.5 H, MPV 8.8, Gran % 67.8, Lymphocytes % 20.6, Monocytes % 8.6, Eosinophils % 2.5, Basophils % 0.5, Absolute Granulocytes 6.3, Absolute Lymphocytes 1.9, Absolute Monocytes 0.8 H, Absolute Eosinophils 0.2, Absolute Basophils 0, PUBS MCHC 32.3 L 11/11/16 1820: APTT 79 H Vital Signs Date Time Temp Pulse Resp B/P B/P Pulse O2 O2 Flow FiO2 Mean Ox Delivery Rate 11/12 926 97.8 73 16 110/68 94 Room Air 11/12 0626 104 124/72 11/11 2159 92 120/70 06/ 1600 93 Room Air / 1530 98.2 75 16 118/68 93 /08 1422 100 124/70 Pt seen and examined at bedside. Encouraged pt to do leg evevation. On exam has b/l pitting edema upto knees 2+. CHF exacerbation acute systolic secondary to Afib with RVR- will switch to iv lasix for now to 40mg iv qdaily. AFib with RVR- f/[facility] cardiology recommendations. Afib rates today 100-150. On cardizem drip. Also had some beats of Vtach on tele. Echo showed 30-35 % EF Delusions- Psych following and started on haldol po . Pt refusing meds. D/w pscyh to see if pt will benefit from Long acting agents. Cellulitis- improving , wbc down to 9.2
[2016-11-12 15:30] VITALS: BP 120/60
[2016-11-12 19:59] LABS: PTT 72 SEC (25-37)
[2016-11-12 21:31] VITALS: BP 132/76
--- NOTE | 2016-11-13 07:49 | PN- Housestaff ---
See Addendum Subjective Follow-up For: Gurpreet tam with RVR Cellulitis Complaints: no complaints Tele-Events Since Last Visit: Atrial fibrillation, rate 90s to 100s Review of Systems Constitutional: Reports: no symptoms. Objective Last 24 Hrs of Vital Signs/I&O Vital Signs Date Time Temp Pulse Resp B/P B/P Pulse O2 O2 Flow FiO2 Mean Ox Delivery Rate 11/13 0526 97.0 113 16 120/80 11/13 0357 94 Nasal 2.0L Cannula 11/12 2133 106 132/76 11/12 2131 98.1 107 20 132/76 95 Room Air 11/12 1600 95 Room Air 11/12 1530 97.9 92 16 120/60 95 Room Air 11/12 1432 117 100/60 11/12 0927 97.8 73 16 110/68 94 Room Air Intake & Output 11/13 0800 11/13 0000 11/12 1600 Intake Total 540 870 824 Output Total 975 825 625 Balance -435 45 199 Intake, IV 240 230 264 Intake, Oral 300 640 560 Number 1 Bowel Movements Output, Urine 975 825 625 Patient 240 lb Weight Weight Reported by Patient Measurement Method Physical Exam General Appearance: Alert, Oriented X3, Cooperative, No Acute Distress HEENT: PERRLA, EOMI, Mucous Membr. moist/pink Cardiovascular: irregularly irregular HR Lungs: Clear to Auscultation, Normal Air Movement Abdomen: Normal Bowel Sounds, Soft, No Tenderness Extremities: erythema and open wounds to both lower extremities, 1+ pedal edema bilaterally Current Medications: Current Medications Sig/Jaqueline Start time Last Medication Dose Route Stop Time Status Admin Acetaminophen 650 MG Q6P PRN 11/09 2200 AC PO Bisacodyl 10 MG DAILY NEEDED PRN 11/09 2200 AC LA Cefazolin Sodium 1,000 MG Q8H 11/10 0300 AC 11/13 IV 0304 Diltiazem HCl 60 MG Q8 11/11 0730 AC 11/13 PO 0526 Diltiazem HCl 125 MG Q24H 11/09 1830 AC 11/12 Sodium Chloride 100 ML IV 1905 Furosemide 40 MG DAILY 11/13 1000 AC IV Furosemide 20 MG ONCE ONE 11/12 1800 DC 11/12 IV 11/12 1801 1905 Furosemide 20 MG 1400 11/10 1400 DC 11/11 PO 1422 Furosemide 40 MG DAILY 11/10 1000 DC 11/12 PO 0630 Haloperidol 0.5 MG BID 11/12 1032 AC 11/12 PO 2134 Haloperidol 0.5 MG BID PRN 11/11 1315 DC PO Heparin Sodium 25,000 UNIT Q24H 11/09 1830 AC 11/12 (Porcine) IV 1905 Sodium Chloride 500 ML Lamotrigine 100 MG DAILY 11/10 1000 AC 11/12 PO 0630 Magnesium Hydroxide 30 ML Q72H PRN 11/09 2200 AC PO Melatonin 5 MG AT BEDTIME 11/11 220 AC 11/12 PO 2134 Melatonin 3 MG DAILY NEEDED PRN 11/09 2200 AC PO Morphine Sulfate 1 MG Q4P PRN 11/09 2200 AC IV Oxycodone HCl 5 MG Q6P PRN 11/09 2200 AC PO Patient Medication 1 ED .STK-MED ONE 11/12 1432 DE Teaching ED 11/12 1433 Polyethylene Glycol 17 GM DAILY 11/09 2156 AC 11/10 PO 1131 Last 24 Hrs of Lab/Bebo Results Last 24 Hrs of Labs/Mics: Laboratory Tests 11/13/16 0630: Anion Gap 10, Estimated GFR > 60, BUN/Creatinine Ratio 24.5, APTT 58 H, CBC w Diff Pending, WBC Pending, RBC Pending, Hgb Pending, Hct Pending, MCV Pending, MCH Pending, RDW Pending, Plt Count Pending, MPV Pending, PUBS MCHC Pending 11/12/16 1920: APTT 72 H 11/12/16 1015: APTT 94 H Lines/Diet/Fluids Lines: peripheral lines Assessment/Plan Assessment: 76-year-old gentleman from [facility] with past medical history significant for seizure disorder on Lamictal, chronic lower extremity swelling, A. fib, CABG status post multiple stents placements, PPM, Cardiomyopathy, chronic ischemic heart disease, hypertension, heart failure, history of previous strokes, hyperlipidemia and paranoid delusions was sent by the facility for worsening right lower extremity cellulitis which was treated with 10 day course of Keflex (ended October 22) as outpatient. Found to be in A. fib with rapid ventricular rate , febrile with leukocytosis, no bandemia, elevated lactic acid,chest x-ray shows no acute pathology. UA neg for infection. In ED he was given 3 boluses of IV Cardizem after which IV Cardizem drip was started, IV heparin was also started. 1 L normal saline and one dose of IV Unasyn was given. Will admit him to the telemetry floor for A.fib with rapid ventricular response and outpatient failure of cellulitis. Problem list: A. fib with rapid ventricular rate Sepsis secondary to right lower extremity cellulitis Seizure disorder CHF Permanent pacemaker Chronic bilateral leg swelling Moderate peripheral vascular disease Hypertension Hyperlipidemia Psychosis/dementia Plan: Afib with RVR: Continuous telemetry monitoring, patient now started on oral Cardizem 60 mg every 8, currently on IV heparin, will switch to eliquis dc; pending psych evaluation to ensure medication compliance. will continue monitoring heart rate. Cellulitis: Right lower extremity, will continue IV cefazolin 1 g every 8, afebrile, white count improving, leg swelling erythema improving. Blood cx have been negative so far. Bilateral lower extremity Doppler negative Will cont IV lasix 40 mg for lower extremity edema. Paranoid Ideation: Continues to have paranoid ideation, accusing staff of poisoning him by giving him meds, pending psyc eval and recommendation. * Haloperidol 0.5 mg twice a day Seizure disorder: will cont lamictal. DVT ppx with IV heparin full code Problem List: 1. Atrial fibrillation, rapid 2. Cellulitis of lower extremity 3. Sepsis 4. Seizure disorder Pain Ratin Pain Location: none Pain Goal: Remain pain free Pain Plan: mild pain pathway Tomorrow's Labs & Rationales: none-stable
[2016-11-13 08:19] LABS: PTT 58 SEC (25-37)
[2016-11-13 08:21] LABS: ABSOLUTE BASOPHIL COUNT 0 /CUMM (0.0-0.2); ABSOLUTE EOSINOPHIL COUNT 0.3 /CUMM (0.0-0.7); ABSOLUTE GRANULOCYTE CT 4.9 /CUMM (1.4-6.5); ABSOLUTE LYMPH COUNT 2.4 /CUMM (1.2-3.4); ABSOLUTE MONOCYTE COUNT 0.9 /CUMM (0.10-0.60); BASOPHIL % 0.5 % (0.0-2.0); GRANULOCYTE % 57.4 % (42.2-75.2); HEMATOCRIT 42.4 % (42-52); MEAN CORPUSCULAR HGB 30.4 PG (27.0-31.0); MEAN PLATELET VOLUME 8.4 FL (7.4-10.4); PLATELET COUNT 224 /CUMM (130-400); RBC DISTRIBUTION WIDTH 16.9 % (11.5-14.5); RED BLOOD CELL CT 4.46 /CUMM (4.70-6.10); WHITE BLOOD CELL COUNT 8.6 /CUMM (4.8-10.8)
[2016-11-13 10:31] VITALS: BP 104/68
--- NOTE | 2016-11-13 13:20 | PN- Cardiology ---
Subjective Subjective: * Breathing is improving but not yet normal. No chest discomfort or palpitations. * Persistent leg swelling. * atrial fibrillation with mildly increased heart rate. Objective Vital Signs and I&Os Vital Signs Date Time Temp Pulse Resp B/P B/P Pulse O2 O2 Flow FiO2 Mean Ox Delivery Rate 11/13 1031 97.9 96 20 104/68 96 Room Air 11/13 0526 97.0 113 16 120/80 11/13 0357 94 Nasal 2.0L Cannula 11/12 2134 106 132/76 11/12 2131 98.1 107 20 132/76 95 Room Air 11/12 1600 95 Room Air 11/12 1530 97.9 92 16 120/60 95 Room Air 11/12 1432 117 100/60 Intake & Output 11/13 1600 11/13 0800 11/13 0000 11/12 1600 11/12 0800 11/12 0000 Intake Total 540 870 824 200 400 Output Total 975 825 625 625 Balance -435 45 199 -425 400 Intake, IV 240 230 264 Intake, Oral 300 640 560 200 400 Number 1 0 Bowel Movements Output, Urine 975 825 625 625 Patient 240 lb Weight Weight Reported by Patient Measurement Method Physical Exam: General: WD/obese male in NAD; alert and oriented x 3 Neck: no JVD Heart: irregularly irregular Lungs: clear bilaterally Extremities: 2+ bilateral leg edema with venous stasis changes Assessment/Plan Assessment/Plan * This patient is in atrial fibrillation of unkown duration at increased heart rate. He needs to begin Eliquis at 5mg BID for stroke prophylaxis. Check a TSH and free T4. * Change Cardizem to 120mg PO BID and stop IV Cardizem. We will continue to follow his heart rate and will consider adding digoxin to his drug regimen if he remains tachycardic considering his low EF. Continue telemetry? Yes
[2016-11-13 15:19] VITALS: BP 124/70
[2016-11-14 01:05] VITALS: BP 130/62
--- NOTE | 2016-11-14 04:02 | NUR ---
LATE ENTRY: AT APPROX 0215 PT WAS SEEN IN [facility] FOR APPROX 30-60 SECONDS; STRIP PRINTED AND DR. SALMON NOTIFIED; AROUND 0245 PT SEEN AGAIN GOING BACK AND FORTH FROM [facility] TO [facility]; PT SLEEPING, VSS, ASYMPTOMATIC; AT APPROX 0315 BLOOD AND EKG WERE ORDERED AND 0330 ATTEMPTS WERE MADE TO DRAW BLOOD AND TAKE EKG BUT PT WAS SWEARING AND REFUSED BOTH; DR SALMON NOTIFIED OF PTS REFUSAL AND TOLD TO MONITOR FOR ANY MORE ACTIVITY ON MONITOR AND TO NOTIFY IF ANY MORE ACTIVITY
--- NOTE | 2016-11-14 07:08 | PN- Housestaff ---
IRMA CHAN,[facility] 11/14/16 0708: Subjective Follow-up For: Gurpreet tam with RVR Cellulitis Tele-Events Since Last Visit: Gurpreet tam, heart rate between 81-96, Subjective: Patient seen and examined this morning. He was lying comfortably in bed in no acute distress. Offers no complaints. Off of heparin drip and Cardizem drip. Started on Eliquis. Review of Systems Constitutional: Reports: see HPI. Objective Last 24 Hrs of Vital Signs/I&O Vital Signs Date Time Temp Pulse Resp B/P B/P Pulse O2 O2 Flow FiO2 Mean Ox Delivery Rate 11/14 0105 97.9 78 20 130/62 94 Room Air 11/14 0000 Room Air 11/13 1519 97.4 71 20 124/70 91 Room Air 11/13 1506 132/60 11/13 1316 138/60 11/13 1031 97.9 96 20 104/68 96 Room Air Intake & Output 11/14 0800 11/14 0000 11/13 1600 Intake Total 400 240 700 Output Total 300 1500 Balance 400 -60 -800 Intake, IV 300 Intake, Oral 400 240 400 Output, Urine 300 1500 Physical Exam General Appearance: Alert, Oriented X3, Cooperative, No Acute Distress Cardiovascular: Regular Rate, Normal S1, Normal S2, No Murmurs Lungs: Clear to Auscultation, Normal Air Movement Abdomen: Normal Bowel Sounds, Soft, No Tenderness Extremities: No Clubbing, No Cyanosis, b/l lle edema 2+ Current Medications: Current Medications Sig/Jaqueline Start time Last Medication Dose Route Stop Time Status Admin Acetaminophen 650 MG Q6P PRN 11/090 AC PO Apixaban 5 MG BID 11/13 1414 AC 11/13 PO 2058 Bisacodyl 10 MG DAILY NEEDED PRN 11/09 2199 AC [place] Cefazolin Sodium 1,000 MG Q8H 11/10 0300 DC 11/14 IV 0209 Diltiazem HCl 120 MG BID 11/13 2199 AC 11/13 PO 2057 Diltiazem HCl 60 MG ONCE ONE 11/13 1500 DC 11/13 PO 11/13 1501 1506 Diltiazem HCl 60 MG Q8 11/11 0730 DC 11/13 PO 1316 Diltiazem HCl 125 MG Q24H 11/09 1830 DC 11/12 Sodium Chloride 100 ML IV 1905 Furosemide 40 MG DAILY 11/13 1000 AC 11/13 IV 1037 Haloperidol 1 MG .STK-MED ONE 11/13 2036 DC PO 11/13 2037 Haloperidol 0.5 MG BID 11/12 1032 AC 11/13 PO 2058 Heparin Sodium 4,500 UNIT ONE ONE 11/13 1115 DC 11/13 (Porcine) IV 11/13 1116 1132 Heparin Sodium 25,000 UNIT Q24H 11/09 1830 DC 11/13 (Porcine) IV 1313 Sodium Chloride 500 ML Lamotrigine 100 MG DAILY 11/10 1000 AC 11/13 PO 1037 Magnesium Hydroxide 30 ML Q72H PRN 11/09 220 AC PO Melatonin 5 MG AT BEDTIME 11/11 220 AC 11/13 PO 2058 Melatonin 3 MG DAILY NEEDED PRN 11/09 220 AC PO Morphine Sulfate 1 MG Q4P PRN 11/09 220 AC IV Oxycodone HCl 5 MG Q6P PRN 11/09 2200 AC PO Polyethylene Glycol 17 GM DAILY 11/09 2156 AC 11/10 PO 113 Last 24 Hrs of Lab/Bebo Results Last 24 Hrs of Labs/Mics: Laboratory Tests 11/14/16 0615: TSH Pending, Free T4 Pending 11/14/16 0615: Sodium Pending, Potassium Pending, Chloride Pending, Carbon Dioxide Pending, Anion Gap Pending, BUN Pending, Creatinine Pending, BUN/Creatinine Ratio Pending , Magnesium Pending 11/13/16 1700: APTT Cancelled Assessment/Plan Assessment: 76-year-old gentleman from [facility] with past medical history significant for seizure disorder on Lamictal, chronic lower extremity swelling, A. fib, CABG status post multiple stents placements, PPM, Cardiomyopathy, chronic ischemic heart disease, hypertension, heart failure, history of previous strokes, hyperlipidemia and paranoid delusions was sent by the facility for worsening right lower extremity cellulitis which was treated with 10 day course of Keflex (ended October 22) as outpatient. Found to be in A. fib with rapid ventricular rate , febrile with leukocytosis, no bandemia, elevated lactic acid,chest x-ray shows no acute pathology. UA neg for infection. In ED he was given 3 boluses of IV Cardizem after which IV Cardizem drip was started, IV heparin was also started. 1 L normal saline and one dose of IV Unasyn was given. Will admit him to the telemetry floor for A.fib with rapid ventricular response and outpatient failure of cellulitis. Problem list: A. fib with rapid ventricular rate Sepsis secondary to right lower extremity cellulitis Seizure disorder CHF Permanent pacemaker Chronic bilateral leg swelling Moderate peripheral vascular disease Hypertension Hyperlipidemia Psychosis/dementia Plan: Afib with RVR: Continuous telemetry monitoring, patient now started on oral Cardizem 60 mg every 8, switched to eliquis dc; will continue monitoring heart rate. Cellulitis: Right lower extremity, will continue IV cefazolin 1 g every 8, afebrile, white count improving, leg swelling erythema improving. Blood cx have been negative so far. Bilateral lower extremity Doppler negative Will cont IV lasix 40 mg for lower extremity edema. Paranoid Ideation: Continues to have paranoid ideation, accusing staff of poisoning him by giving him meds, pending psyc eval and recommendation. * Haloperidol 0.5 mg twice a day Seizure disorder: will cont lamictal. DVT ppx with IV heparin full code Problem List: 1. Seizure disorder 2. Sepsis 3. Cellulitis of lower extremity 4. Atrial fibrillation, rapid Pain Ratin Pain Location: none Pain Goal: Remain pain free Pain Plan: see a/p Tomorrow's Labs & Rationales: cbc rolfp DIANNE CHAN,JOSHUA 11/14/16 1133: Attending MD Review Statement Attending Statement Attending Assessment/Plan: Patient seen and examined. Plan of care discussed with the medical team and the patient. Available lab work and radiology test reports were reviewed. Patient has been afebrile and lying in bed today. monitoring engineer shows a few episodes of nonsustained ventricular tachycardia. he is currently on room air with 93% saturation. Other vital signs stable. Chest exam reveals scattered crepitations. Lower extremities still are edematous and red however overall edema has reduced. Laboratory Tests 11/14 11/14 11/13 0615 0615 1700 Chemistry Sodium (137 - 145 mmol/L) 138 Potassium (3.5 - 5.1 mmol/L) 4.4 Chloride (98 - 107 mmol/L) 101 Carbon Dioxide (22 - 30 mmol/L) 31 H Anion Gap (5 - 16) 6 BUN (9 - 20 mg/dL) 26 H Creatinine (0.7 - 1.2 mg/dL) 1.1 Estimated GFR (>60 ml/min) > 60 BUN/Creatinine Ratio (7 - 25 %) 23.6 Magnesium (1.6 - 2.3 mg/dL) 2.1 TSH (0.270 - 4.200 uIU/mL) 4.400 H Free T4 (0.78 - 2.44 ng/dL) 1.04 Coagulation APTT Cancelled Plan Continue IV Lasix Continue oral Cardizem to control heart rate. Continue Leg elevation Continue cefazolin Plan was discussed with director internal communications
[2016-11-14 08:03] VITALS: BP 126/87
--- NOTE | 2016-11-14 13:12 | PN- Cardiology ---
Subjective Subjective: * Breathing is improving but not yet normal. No chest discomfort or palpitations. * Persistent leg swelling with some improvement since yesterday. * atrial fibrillation with controlled heart rate * Borderline elevated TSH with normal free T4 Objective Vital Signs and I&Os Vital Signs Date Time Temp Pulse Resp B/P B/P Pulse O2 O2 Flow FiO2 Mean Ox Delivery Rate 11/14 0936 122 168/64 11/14 0803 98.4 123 16 126/87 93 Room Air 11/14 0105 97.9 78 20 130/62 94 Room Air 11/14 0000 Room Air 11/13 1519 97.4 71 20 124/70 91 Room Air 11/13 1506 132/60 11/13 1316 138/60 Intake & Output 11/14 1600 11/14 0800 11/14 0000 11/13 1600 11/13 0800 11/13 0000 Intake Total 400 240 700 540 870 Output Total 300 1500 975 825 Balance 400 -60 -800 -435 45 Intake, IV 300 240 230 Intake, Oral 400 240 400 300 640 Number 1 Bowel Movements Output, Urine 300 1500 975 825 Patient 240 lb Weight Weight Reported by Patient Measurement Method Physical Exam: General: WD/obese male in NAD; alert and oriented x 3 Neck: no JVD Heart: irregularly irregular Lungs: clear bilaterally Extremities: 2+ bilateral leg edema with venous stasis changes Assessment/Plan Assessment/Plan * This patient is in atrial fibrillation of unkown duration at increased heart rate. He needs to begin Eliquis at 5mg BID for stroke prophylaxis. * Continue Cardizem at 120mg PO BID. Patient is now off IV Cardizem. We will continue to follow his heart rate and will consider adding digoxin to his drug regimen if he is again tachycardic considering his low EF. Continue telemetry? Yes
[2016-11-14 16:24] VITALS: BP 105/79
--- NOTE | 2016-11-15 07:30 | Discharge Summary ---
See Addendum Visit Information Visit Dates Admission Date: 11/09/16 Discharge Date: 11/19/2016 Hospital Course Course Attending Physician: JOHN CHAN,ALEX Mirza Primary Care Physician: SADIA CHAN,[facility] Hospital Course: Patient is a 76-year-old gentleman from [facility] with past medical history significant for Coronary artery disease status post CABG, history of atrial fibrillation not on anticoagulation s/p PPM, hypertension and hyperlipidemia, CHF, venous insufficiency, type 2 diabetes, chronic kidney disease stage IIIa, history of seizure disorder on Lamictal, psychosis with paranoid delusions, history of recurrent lower extremity cellulitis recently completed oral antibiotic course at the facility ,presented to the ER for the evaluation of lower extremity swelling. Doppler venous ultrasound at the facility ruled out DVT, had a arterial Doppler ultrasound that showed peripheral vascular disease. Patient had been very noncompliant with his medications, stopped the medications by himself(due to his paranoid/fixed delusions that government was poisoning him with the medications) ED course: Vitals on admission: Temperature and 0.8, heart rate in 150s and blood pressure 134/77 and saturation was 92% on room air. Labs were significant for leukocytosis of 18.2, no significant electrolyte abnormality other than chronic renal insufficiency BUN 34 and creatinine 1.4, lactic acid of 2.2, negative troponin. EKG significant for atrial fibrillation with RVR. Chest x-ray on admission:No acute pulmonary process. Prominence of the cardiac silhouette. This mayrepresent underlying cardiomegaly or may be secondary to technique. No overt pulmonary edema. Following problems were is one patient was on telemetry floor: 1. Atrial fibrillation with RVR most likely in the setting of sepsis from cellulitis with tachycardia induced cardiomyopathy: Patient was admitted to telemetry floor. He was started on IV Cardizem drip with IV heparin drip. ACS was ruled out with serial troponin and EKG. Patient was evaluated by Dr. Farias , his pacemaker was interrogated. As per recommendations patient had echocardiogram done that showed reduced left ventricular systolic function(tachycardia induced cardiomyopathy was suspected) Cardizem drip was gradually tapered off and patient was started on by mouth Cardizem. Heart rate remains elevated and patient was started on by mouth Lopressor 12.5 mg incresed to 50 BID twice a day as well to keep heart rate below 110. He was switched to elliquis 5 mg twice a day for stroke prevention. Patient was discharged to [facility] with by mouth Cardizem (360 MG daily), metoprolol(50 mg bid and elliquis. 2. Sepsis due to lower extremity cellulitis with edema: Patient was started on IV cefazolin after sending the cultures. Patient was also started on IV Lasix due to lower extremity 2+ pitting edema. Wound consult was also obtained and recommendations were followed .He remained afebrile, leukocytosis and lower extremity erythema and swelling improved. Patient was switched to by mouth Keflex and Lasix on discharge. 3.Paranoid Ideation: Patient presented with paranoid ideation, accusing government of poisoning him by giving him meds, on further investigation and psych evaluation, it was revealed that patient has been holding this firm belief for a long time. Patient was started on Haloperidol 0.5 mg twice a day, along with recommendation of: -Avoiding nursing and medical procedures during sleep hours whenever possible - Cluster at night interventions that must be completed as much as possible to minimize . On discharge psych recommended to transition patient to haldol dec shot. 2-3 week trail of PO medication at effective dose recommended prior to transition. 4.Seizure disorder: Continue home dose of Lamictal DVT ppx with IV heparin full code Allergies: Coded Allergies: atorvastatin (UNKNOWN 11/09/16) ramipril (UNKNOWN 11/09/16) Significant Procedures: ESTELACINDY OWENS Age: 76 : 1940 Gender: M Exam Date: 11/10/2016 19:24 Exam Location: [address] [place] [address] Ht (in): 70 Wt (lb): 240 BSA: 2.36 BP: 100 / 64 Ordering Physician: JENNIFER DAVALOS MD Referring Physician: Vishal Farias MD Chief, SoC Technologist: Sierra Mullen [facility] Room Number: 172 Indications: HEART FAILURE Rhythm: Atrial fibrillation Technical Quality: Good FINDINGS Left Ventricle Mild left ventricular dilatation. Mild concentric left ventricular hypertrophy. Left ventricular ejection fraction is estimated at 30-35 %. No obvious regional wall motion abnormalities. Definity contrast was used to improve suboptimal left ventricular endocardial definition. Right Ventricle Right ventricle not well visualized, grossly normal. Catheter/pacemaker wire in the right ventricular cavity. Right Atrium Normal right atrial size. Catheter/pacemaker wire in the right atrial appendage. Left Atrium Moderate left atrial dilatation. Mitral Valve There is mild to moderate thickening of the mitral valve leaflets with somewhat reduced excursion. Moderate mitral regurgitation. Aortic Valve Focal thickening of the aortic valve cusps. No aortic stenosis. Trace to mild aortic regurgitation. Tricuspid Valve Tricuspid valve is normal in structure and function. Mild tricuspid regurgitation. Right ventricular systolic pressure estimated to be elevated at 45-50 mmHg. Pulmonic Valve Pulmonic valve not well visualized, grossly normal. Trace pulmonic regurgitation. Pericardium There is a small nonhemodynamically significant posterior pericardial effusion seen. Great Vessels Normal size aortic root. Dilated IVC CONCLUSIONS Mild left ventricular dilatation. Mild concentric left ventricular hypertrophy. Left ventricular ejection fraction is estimated at 30-35 %. Catheter/pacemaker wire in the right ventricular cavity. Catheter/pacemaker wire in the right atrial appendage. Moderate left atrial dilatation. There is mild to moderate thickening of the mitral valve leaflets with somewhat reduced excursion. Moderate mitral regurgitation. Focal thickening of the aortic valve cusps. No aortic stenosis. Trace to mild aortic regurgitation. Right ventricular systolic pressure estimated to be elevated at 45- 50 mmHg. There is a small nonhemodynamically significant posterior pericardial effusion seen. Dilated IVC. Vishal Farias M.D. (Electronically Signed) Final Date: 11 November 2016 13:31 MEASUREMENTS (Male / Female) Normal Values 2D ECHO LV Diastolic Diameter PLAX 5.5 cm 4.2 - 5.9 / 3.9 - 5.3 cm LV Systolic Diameter PLAX 4.6 cm 2.1 - 4.0 cm LV Fractional Shortening PLAX 16.4 % 25 - 46 % LV Ejection Fraction 2D Teich 34.0 % IVS Diastolic Thickness 1.1 cm LVPW Diastolic Thickness 1.1 cm LV Relative Wall Thickness 0.4 RV Internal Dim ED PLAX 3.1 cm 1.9 - 3.8 cm LVOT Diameter 1.9 cm Aortic Root Diameter 3.2 cm LA Systolic Diameter LX 4.2 cm 3.0 - 4.0 / 2.7 - 3.8 cm LA Volume 90.0 cm 18 - 58 / 22 - 52 cm Ascending Aorta Diameter 3.5 cm DOPPLER AV Peak Velocity 130.0 cm/s AV Peak Gradient 6.8 mmHg AV Mean Velocity 90.4 cm/s AV Mean Gradient 4.0 mmHg AV Velocity Time Integral 24.6 cm LVOT Peak Velocity 66.3 cm/s LVOT Peak Gradient 1.8 mmHg LVOT Mean Velocity 46.9 cm/s LVOT Mean Gradient 1.0 mmHg LVOT Velocity Time Integral 10.8 cm LVOT Stroke Volume 30.6 cm AV Area Cont Eq vti 1.2 cm AV Area Cont Eq pk 1.4 cm MV Peak Velocity 106.0 cm/s MV Peak Gradient 4.5 mmHg MV Mean Velocity 60.3 cm/s MV Mean Gradient 2.0 mmHg Mitral E Point Velocity 84.4 cm/s MV PHT Velocity 108.0 cm/s MV Deceleration Todd 509.0 cm/s MV Pressure Half Time 63.7 ms MV Area PHT 3.5 cm MV Deceleration Time 120.0 ms TR Peak Velocity 301.0 cm/s TR Peak Gradient 36.2 mmHg Right Atrial Pressure 10.0 mmHg Pulmonary Artery Systolic Pressu 46.2 mmHg Right Ventricular Systolic Press 46.2 mmHg PV Peak Velocity 69.2 cm/s PV Peak Gradient 1.9 mmHg PV Mean Velocity 52.8 cm/s PV Mean Gradient 1.0 mmHg PV Velocity Time Integral 13.8 cm LV E' Lateral Velocity 9.1 cm/s Mitral E to LV E' Lateral Ratio 9.3 LV E' Septal Velocity 3.9 cm/s Mitral E to LV E' Septal Ratio 21.6 DICTATED BY: VISHAL FARIAS MD, V. DATE/TIME DICTATED:11/11/161330 HISTOLOGIC AIDE:JETHRO DATE/TIME TRANSCRIBED:11/11/161330 CONFIDENTIAL, DO NOT COPY WITHOUT APPROPRIATE AUTHORIZATION. <Electronically signed in Other Vendor System> SIGNED BY: VISHAL FARIAS MD, V. 11/11/16 1332 TECHNIQUE: Color-flow triplex imaging with spectral analysis and compression Doppler were performed on the lower extremities. FINDINGS: Respiratory variation, normal compression and augmented flow are noted throughout the lower extremities. The visualized common femoral vein, superficial femoral vein, profunda femoral vein, popliteal vein and midcalf peroneal and posterior tibial venous segments show no evidence of deep venous thrombosis. There is a 3.6 x 0.8 1.2 cm cyst in the right popliteal fossa. IMPRESSION: No evidence of deep venous thrombosis involving the lower extremities. Right Augustin's cyst. Disposition Summary Disposition Principal Diagnosis: Atrial fibrillation with RVR most likely in the setting of sepsis from cellulitis with tachycardia induced cardiomyopathy: Additional Diagnosis: Sepsis due to lower extremity cellulitis with edema: Discharge Disposition: SNF Discharge Instructions General Discharge Information Code Status: Full Code Patient's Diet: Heart healthy diet Patient's Activity: As tolerated Follow-Up Instructions/Appts: 1. Please follow-up with your PCP after discharge 2. Please remain compliant with her medications 3. Please follow-up with the cattle farmer as an outpatient 4. Return to the unit of the symptoms get worse after discharge Medications at Discharge Discharge Medications: Stop taking the following medications: Naloxone HCl (Narcan) 4 MG/ACTUATION SPRAY In the nose As Directed as needed for OPIOID INDUCED RESP. DEPRESSIO Continue taking these medications: Lamotrigine (Lamictal) 100 MG TABLET 1 Tablet ORAL DAILY Furosemide (Lasix) 40 MG TABLET 1 Tablet ORAL DAILY Furosemide (Lasix) 20 MG TABLET 1 Tablet ORAL 14OO Acetaminophen (Acephen) 650 MG SUPP.RECT 1 SUPPOSITORY RECTALLY Q6H as needed for PAIN/TEMP>101 Acetaminophen (Pharbetol) 325 MG TABLET 2 Tablet ORAL Q6H as needed for PAIN/TEMP>101 Melatonin (Melatonin) 3 MG TABLET 1 Tablet ORAL DAILY as needed for SUPPLEMENT Magnesium Hydroxide (Milk Of Magnesia) 400 MG/5 ML ORAL.SUSP 30 Milliliters ORAL Every 3 days as needed for CONSTIPATION Bisacodyl (Dulcolax) 10 MG SUPP.RECT 1 Suppository RECTAL DAILY as needed for CONSTIPATION Na Phos,M-B/Na Phos,Di-Ba (Fleet Enema) 19 GRAM-7 GRAM/118 ML ENEMA 1 Enema RECTAL as needed for CONSTIPATION Start taking the following new medications: Apixaban (Eliquis) 5 MG TABLET 1 Tablet ORAL TWICE DAILY Qty = 60 No Refills Cephalexin (Cephalexin) 500 MG CAPSULE 1 Capsule ORAL Q6H Qty = 3 No Refills Haloperidol (Haloperidol) 0.5 MG TABLET 1 Tablet ORAL TWICE DAILY Qty = 60 No Refills Metoprolol Tartrate (Metoprolol Tartrate) 50 MG TABLET 1 Tablet ORAL TWICE DAILY Qty = 30 No Refills Diltiazem HCl (Cardizem LA) 360 MG TAB.ER.24H 1 Tablet ORAL DAILY Qty = 90 No Refills Copies To: JOHN CHAN,ALEX Mirza; SADIA CHAN,CHARITY
--- NOTE | 2016-11-15 08:23 | PN- Housestaff ---
Subjective Follow-up For: Gurpreet tam with RVR Cellulitis Tele-Events Since Last Visit: Overnight Gurpreet tam, heart rate between 76-119, 3 beat V. tach and 7 beat V. tach No other acute overnight events Subjective: He continues examined this morning. He was lying in bed in no acute distress. He is off of the heparin drip and Cardizem drip currently on Eliquis and oral Cardizem. Denies any shortness of breath, chest pain, palpitation, dizziness, nausea, vomiting, abdominal symptoms, urinary symptoms. He is currently on room air satting in the 90s, her pressure has been within normal limits. Review of Systems Constitutional: Denies: chills, fever. Cardiovascular: Denies: chest pain, palpitations. Respiratory: Denies: cough, short of breath, sputum production. Gastrointestinal: Denies: abdominal pain, constipation, diarrhea, nausea, vomiting. Objective Last 24 Hrs of Vital Signs/I&O Vital Signs Date Time Temp Pulse Resp B/P B/P Pulse O2 O2 Flow FiO2 Mean Ox Delivery Rate 11/14 2337 113 16 96 Room Air 11/14 220 114 120/80 11/14 1624 98.5 94 16 105/79 95 Room Air 11/14 0936 122 168/64 Intake & Output 11/15 1600 11/15 0800 11/15 0000 Intake Total 100 200 Output Total 500 400 Balance -400 -200 Intake, Oral 100 200 Output, Urine 500 400 Physical Exam General Appearance: Alert, Oriented X3, Cooperative, No Acute Distress Cardiovascular: Regular Rate, Normal S1, Normal S2, No Murmurs Lungs: Clear to Auscultation, Normal Air Movement Abdomen: Normal Bowel Sounds, Soft, No Tenderness Extremities: No Clubbing, No Cyanosis, bilateral lower extremity edema 2+ Current Medications: Current Medications Sig/Jaqueline Start time Last Medication Dose Route Stop Time Status Admin Acetaminophen 650 MG Q6P PRN 11/090 AC PO Apixaban 5 MG BID 11/13 1414 AC 11/14 PO 2156 Bisacodyl 10 MG DAILY NEEDED PRN 11/09 2200 AC PA Cefazolin Sodium 1,000 MG Q8H 11/14 1000 AC 11/15 IV 0200 Diltiazem HCl 120 MG BID 11/13 2200 AC 11/14 PO 2200 Furosemide 40 MG DAILY 11/13 1000 AC 11/14 IV 0936 Haloperidol 0.5 MG BID 11/12 1032 AC 11/14 PO 2157 Lamotrigine 100 MG DAILY 11/10 1000 AC 11/14 PO 0936 Magnesium Hydroxide 30 ML Q72H PRN 11/09 2199 AC PO Melatonin 5 MG AT BEDTIME 11/11 2199 AC 11/14 PO 2157 Melatonin 3 MG DAILY NEEDED PRN 11/09 2199 AC PO Morphine Sulfate 1 MG Q4P PRN 11/09 2199 AC IV Oxycodone HCl 5 MG Q6P PRN 11/09 2199 AC PO Polyethylene Glycol 17 GM DAILY 11/09 215 AC 11/14 PO 0945 Tetrahydrozoline HCl 1 GTT BID 11/14 2100 AC 11/14 OPH 2249 Assessment/Plan Assessment: 76-year-old gentleman from [facility] [place] with past medical history significant for seizure disorder on Lamictal, chronic lower extremity swelling, A. fib, CABG status post multiple stents placements, PPM, Cardiomyopathy, chronic ischemic heart disease, hypertension, heart failure, history of previous strokes, hyperlipidemia and paranoid delusions was sent by the facility for worsening right lower extremity cellulitis which was treated with 10 day course of Keflex (ended October 22) as outpatient. Found to be in A. fib with rapid ventricular rate , febrile with leukocytosis, no bandemia, elevated lactic acid,chest x-ray shows no acute pathology. UA neg for infection. In ED he was given 3 boluses of IV Cardizem after which IV Cardizem drip was started, IV heparin was also started. 1 L normal saline and one dose of IV Unasyn was given. Will admit him to the telemetry floor for A.fib with rapid ventricular response and outpatient failure of cellulitis. Problem list: A. fib with rapid ventricular rate Sepsis secondary to right lower extremity cellulitis Seizure disorder CHF Permanent pacemaker Chronic bilateral leg swelling Moderate peripheral vascular disease Hypertension Hyperlipidemia Psychosis/dementia Plan: Afib with RVR: Patient was initially started on IV heparin drip, along with IV Cardizem drip followed by oral Cardizem 60 mg every 8. * Continuous telemetry monitoring, * Continue oral Cardizem 120 mg twice a day. * IV heparin discontinued, patient started on Eliquis, tolerating well. Cellulitis: Patient presented with right lower extremity, he was started on IV cefazolin 1 g every 8, remained afebrile, white count improved or his course of admission, leg swelling erythema improved. Blood cx no growth to date. Bilateral lower extremity Doppler negative. Patient was started on IV Lasix 40 mg, his lower extremity edema improved over time, but he has been very reluctant to elevate his legs. Was seen by wound care, recommendations are followed. * Will cont IV lasix 40 mg for lower extremity edema. Paranoid Ideation: Patient presented with paranoid ideation, accusing government of poisoning him by giving him meds, on further investigation and psych evaluation it was revealed that patient has been holding this firm belief for a long time. Patient was started on Haloperidol 0.5 mg twice a day, along with recommendation of: -Avoiding nursing and medical procedures during sleep hours whenever possible - Cluster at night interventions that must be completed as much as possible to minimize sleep disruption - Decreasing noise patient area during sleeping hours - Reducing lighting at night - Ensuring patient has any sensory aids close by that he regularly uses - Continue Haloperidol 0.5 mg twice a day Seizure disorder: Continue home dose of Lamictal DVT ppx with IV heparin full code Problem List: 1. Atrial fibrillation, rapid 2. Cellulitis of lower extremity 3. Seizure disorder Pain Ratin Pain Location: None Pain Goal: Remain pain free Pain Plan: Mild pain pathway Tomorrow's Labs & Rationales: BeP
[2016-11-15] MEDS ORDERED: CARDIZEM60 M1 PO (08:31)
[2016-11-15] MEDS ORDERED: HALOPERIDOL0.5 M1 PO (08:31)
[2016-11-15] MEDS ORDERED: ELIQUIS5 M1 PO (08:31)
--- NOTE | 2016-11-15 08:32 | Patient Discharge Instructions ---
Discharge Instructions General Discharge Information You were seen/treated for: AMustapha tam with rapid ventricular rate Sepsis secondary to right lower extremity cellulitis Seizure disorder CHF Permanent pacemaker Chronic bilateral leg swelling Moderate peripheral vascular disease Hypertension Hyperlipidemia Psychosis/dementia Special Instructions: Please schedule a follow-up appointment with your primary care physician, die tester, psychiatrist, in 1 week. You have been started on a new medication Cardizem for your heart health and Eliquis, which is a blood thinner, Bummex for swelling in your legs, take it as instructed, watch for any bleeding, follow with your primary Physician in case of any side effects. In case of emergency, go to the nearest emergency room. Diet Continue normal diet: Yes Recommended Diet: Heart Healthy, mechanical soft ground Activity Activity Self Limited: Yes Acute Coronary Syndrome Inclusion Criteria At DC or during hospital stay patient has or had the following: ACS DIAGNOSIS No Discharge Core Measures Meds if any: Prescribed or Continued at Discharge Meds if any: NOT Prescribed or Continued at Discharge Congestive Heart Failure Inclusion Criteria At DC or during hospital stay patient has or had the following: CHF DIAGNOSIS No Discharge Core Measures Meds if any: Prescribed or Continued at Discharge Meds if any: NOT Prescribed or Continued at Discharge Cerebrovascular accident Inclusion Criteria At DC or during hospital stay patient has or had the following: CVA/TIA Diagnosis No Discharge Core Measures Meds if any: Prescribed or Continued at Discharge Meds if any: NOT Prescribed or Continued at Discharge Venous thromboembolism Inclusion Criteria VTE Diagnosis No VTE Type NONE VTE Confirmed by (Test) NONE Discharge Core Measures - Per Current guidelines, there needs to be overlap - treatment for the first 5 days of Warfarin therapy. - If discharged on Warfarin prior to 5 days of - overlap therapy, the patient will need to be - assessed for post discharge needs including - *Post discharge parental anticoagulation - *Warfarin and/or parental anticoagulation education - *Follow up date to check INR post discharge At least 5 days overlap therapy as Inpatient No Meds if any: Prescribed or Continued at Discharge Note: Overlap Therapy is Warfarin and Anticoagulant Meds if any: NOT Prescribed or Continued at Discharge
--- NOTE | 2016-11-15 09:35 | PN- Cardiology ---
Subjective Subjective: The patient has no complaints today. He remains in atrial fibrillation. His rate is quite variable. Currently he is in the low 100s but has been up to 140s. He remains on diltiazem 120 mg twice daily. His cellulitis is improving. He is on Eliquis and tolerating this. He remains on IV antibiotics. Objective Vital Signs and I&Os Vital Signs Date Time Temp Pulse Resp B/P B/P Pulse O2 O2 Flow FiO2 Mean Ox Delivery Rate 11/15 904 98.9 140 18 91 Room Air 11/14 2337 113 16 96 Room Air 11/14 2199 114 120/80 11/14 1624 98.5 94 16 105/79 95 Room Air 11/14 0936 122 168/64 Intake & Output 11/15 1600 11/15 0800 11/15 0000 11/14 1600 11/14 0800 11/14 0000 Intake Total 100 200 400 400 240 Output Total 500 400 900 300 Balance -400 -200 -500 400 -60 Intake, Oral 100 200 400 400 240 Output, Urine 500 400 900 300 Physical Exam: He is in no distress HEENT exam is normal Chest is clear Heart irregular rhythm no murmurs Extremities improving cellulitis with a lot of chronic skin changes Current Medications: Current Medications Sig/Jaqueline Start time Last Medication Dose Route Stop Time Status Admin Acetaminophen 650 MG Q6P PRN 11/090 AC PO Apixaban 5 MG BID 11/13 1414 AC 11/14 PO 2156 Bisacodyl 10 MG DAILY NEEDED PRN 11/09 2200 AC GA Cefazolin Sodium 1,000 MG Q8H 11/14 1000 AC 11/15 IV 0200 Diltiazem HCl 120 MG BID 11/13 220 AC 11/14 PO 2200 Furosemide 40 MG DAILY 11/13 1000 AC 11/14 IV 0936 Haloperidol 0.5 MG BID 11/12 1032 AC 11/14 PO 2157 Lamotrigine 100 MG DAILY 11/10 1000 AC 11/14 PO 0936 Magnesium Hydroxide 30 ML Q72H PRN 11/09 2200 AC PO Melatonin 5 MG AT BEDTIME 11/11 2199 AC 11/14 PO 2157 Melatonin 3 MG DAILY NEEDED PRN 11/09 2200 AC PO Metoprolol Tartrate 12.5 MG BID 11/15 0930 AC PO Morphine Sulfate 1 MG Q4P PRN 11/09 2200 AC IV Oxycodone HCl 5 MG Q6P PRN 11/09 2200 AC PO Polyethylene Glycol 17 GM DAILY 11/09 2156 AC 11/14 PO 0945 Tetrahydrozoline HCl 1 GTT BID 11/14 2100 AC 11/14 OPH 2249 Results Last 48 Hrs of Labs/Mics: Laboratory Tests 11/15/16 0650: Anion Gap 6, Estimated GFR 59 L, BUN/Creatinine Ratio 21.7, Magnesium 1.9 11/14/16 0615: TSH 4.400 H, Free T4 1.04 11/14/16 0615: Anion Gap 6, Estimated GFR > 60, BUN/Creatinine Ratio 23.6, Magnesium 2.1 11/13/16 1700: APTT Cancelled Assessment/Plan Assessment/Plan The patient remains in atrial fibrillation which is probably permanent. 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 His rate is now marginally better controlled. I recommend adding beta cornel to his regimen for better rate control. I recommend a follow-up limited echo to see if improving his heart rate has improved his left ventricular systolic function. Continue telemetry? Yes
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
--- NOTE | 2016-11-15 11:53 | PN- Att Addend ---
Attending MD Review Statement Attending Statement Attending MD Statement: examined this patient, discuss w/resident/PA/SNOW BLOWER, agreed w/resident/PA/SNOW BLOWER, reviewed EMR data (avail), discussed w/nursing, discussed w/ case mgmt Attending Assessment/Plan: Laboratory Tests 11/15/16 0650: Anion Gap 6, Estimated GFR 59 L, BUN/Creatinine Ratio 21.7, Magnesium 1.9 Vital Signs Date Time Temp Pulse Resp B/P B/P Pulse O2 O2 Flow FiO2 Mean Ox Delivery Rate 11/15 0957 130 120/80 11/15 0950 130 120/80 11/15 0905 98.9 140 18 91 Room Air 11/14 2337 113 16 96 Room Air 11/14 2200 114 120/80 11/14 1624 98.5 94 16 105/79 95 Room Air Telemetry reviewed- Still in afib/aflutter with rates going up to 150's to 170's CHF exacerbation acute systolic secondary to Afib with RVR- cont iv lasix for now to 40mg iv qdaily. Lung exam is better, no cracles. AFib with RVR- f/[facility] cardiology recommendations. Afib rates today 150- 170. On cardizem 120mg po bid, will add metoprolol 12.5 mg bid and go up as tolerated . may have to add digoxin if HR continues to be high. Echo showed 30-35 % EF Delusions- Psych following and started on haldol po . Pt taking po haldol now. Cellulitis- improving , cont on cefazolin. will switch to po at time of discharge if needed.
[2016-11-15 17:15] VITALS: BP 138/70
[2016-11-16 00:08] VITALS: BP 132/72
--- NOTE | 2016-11-16 03:33 | NUR ---
PT TOOK OFF TECHNICAL IMPLEMENTATION LEAD. HE HAD A PAIR OF SCISSORS UNDER HIS PILLOW. PT DID NOT STATE WHY. DENIED ANY THOUGHTS TO HURT HIMSELF OR OTHRES. MD MONTALVO AWARE. CONTINOUS OBSERVATION MONITOR. ORDERED.
--- NOTE | 2016-11-16 03:36 | NUR ---
PT HAD A 7 BEAT RUN OF VTACH. MD MONTALVO AWARE. NNO AT THIE TIME. PATIENT ASYMPTOMATIC. WILL CONITUNE TO MONITOR.
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
--- NOTE | 2016-11-16 07:12 | PN- Housestaff ---
Subjective Follow-up For: cellulitis afib w/rvr Subjective: patient seen and examined. over night heart rate fluctuated btw 70-98, 5 beat run of vtach. afebrile, on RA satting well, offers no complaints. Review of Systems Constitutional: Denies: chills, fever. Respiratory: Denies: cough, short of breath, sputum production. Gastrointestinal: Denies: abdominal pain, constipation, diarrhea, nausea, vomiting. Genitourinary: Denies: dysuria, frequency. Objective Last 24 Hrs of Vital Signs/I&O Vital Signs Date Time Temp Pulse Resp B/P B/P Pulse O2 O2 Flow FiO2 Mean Ox Delivery Rate 11/16 0008 98.0 94 18 132/72 95 Room Air 11/15 2134 130 150/100 11/15 2134 132 150/100 11/15 1715 138/70 11/15 1606 97.6 86 17 95 Room Air Intake & Output 11/16 1600 11/16 0800 11/16 0000 Intake Total 120 450 Output Total 400 550 Balance -280 -100 Intake, Oral 120 450 Number 1 Bowel Movements Output, Urine 400 550 Physical Exam General Appearance: Alert, Oriented X3, Cooperative, No Acute Distress Cardiovascular: Regular Rate, Normal S1, Normal S2 Lungs: Clear to Auscultation, Normal Air Movement Abdomen: Normal Bowel Sounds, Soft, No Tenderness Extremities: No Clubbing, No Cyanosis, b/l lle edema 2+ Current Medications: Current Medications Sig/Jaqueline Start time Last Medication Dose Route Stop Time Status Admin Acetaminophen 650 MG Q6P PRN 11/09 2200 AC PO Apixaban 5 MG BID 11/13 1414 AC 11/16 PO 1047 Bisacodyl 10 MG DAILY NEEDED PRN 11/09 2200 AC NC Cefazolin Sodium 1,000 MG Q8H 11/14 1000 DC 11/16 IV 0129 Cephalexin 500 MG Q6 11/16 1200 AC PO Diltiazem HCl 120 MG BID 11/13 2200 AC 11/16 PO 1049 Furosemide 40 MG DAILY 11/17 1000 AC PO Furosemide 20 MG 1400 11/16 1400 AC 11/16 PO 1242 Furosemide 40 MG DAILY 11/13 1000 DC 11/15 IV 0947 Haloperidol 0.5 MG BID 11/12 1032 AC 11/16 PO 1047 Lamotrigine 100 MG DAILY 11/10 1000 AC 11/16 PO 1047 Magnesium Hydroxide 30 ML Q72H PRN 11/09 2199 AC PO Melatonin 5 MG AT BEDTIME 11/11 2199 AC 11/15 PO 2132 Melatonin 3 MG DAILY NEEDED PRN 11/09 2199 AC PO Metoprolol Tartrate 25 MG BID 11/16 2199 AC PO Metoprolol Tartrate 12.5 MG BID 11/15 0930 DC 11/16 PO 1049 Morphine Sulfate 1 MG Q4P PRN 11/09 2199 AC IV Oxycodone HCl 5 MG Q6P PRN 11/09 2199 AC PO Polyethylene Glycol 17 GM DAILY 11/09 2156 AC 11/16 PO 1051 Tetrahydrozoline HCl 1 GTT BID 11/14 2100 AC 11/16 OPH 1051 Last 24 Hrs of Lab/Bebo Results Last 24 Hrs of Labs/Mics: Laboratory Tests 11/16/16 1331: Sodium Pending, Potassium Pending, Chloride Pending, Carbon Dioxide Pending, Anion Gap Pending, BUN Pending, Creatinine Pending, BUN/Creatinine Ratio Pending , Magnesium Pending Assessment/Plan Assessment: 76-year-old gentleman from [facility] with past medical history significant for seizure disorder on Lamictal, chronic lower extremity swelling, A. fib, CABG status post multiple stents placements, PPM, Cardiomyopathy, chronic ischemic heart disease, hypertension, heart failure, history of previous strokes, hyperlipidemia and paranoid delusions was sent by the facility for worsening right lower extremity cellulitis which was treated with 10 day course of Keflex (ended October 22) as outpatient. Found to be in A. fib with rapid ventricular rate , febrile with leukocytosis, no bandemia, elevated lactic acid,chest x-ray shows no acute pathology. UA neg for infection. In ED he was given 3 boluses of IV Cardizem after which IV Cardizem drip was started, IV heparin was also started. 1 L normal saline and one dose of IV Unasyn was given. Will admit him to the telemetry floor for A.fib with rapid ventricular response and outpatient failure of cellulitis. Problem list: A. fib with rapid ventricular rate Sepsis secondary to right lower extremity cellulitis Seizure disorder CHF Permanent pacemaker Chronic bilateral leg swelling Moderate peripheral vascular disease Hypertension Hyperlipidemia Psychosis/dementia Plan: Afib with RVR: Patient was initially started on IV heparin drip, along with IV Cardizem drip followed by oral Cardizem 60 mg every 8. * Continuous telemetry monitoring, * Continue oral Cardizem 120 mg twice a day. * IV heparin discontinued, patient started on Eliquis, tolerating well. Cellulitis: Patient presented with right lower extremity, he was started on IV cefazolin 1 g every 8, remained afebrile, white count improved or his course of admission, leg swelling erythema improved. Blood cx no growth to date. Bilateral lower extremity Doppler negative. Patient was started on IV Lasix 40 mg, his lower extremity edema improved over time, but he has been very reluctant to elevate his legs. Was seen by wound care, recommendations are followed. * Po lasix 40 mg in Am and 20mg in PM for lower extremity edema. Paranoid Ideation: Patient presented with paranoid ideation, accusing government of poisoning him by giving him meds, on further investigation and psych evaluation it was revealed that patient has been holding this firm belief for a long time. Patient was started on Haloperidol 0.5 mg twice a day, along with recommendation of: -Avoiding nursing and medical procedures during sleep hours whenever possible - Cluster at night interventions that must be completed as much as possible to minimize sleep disruption - Decreasing noise patient area during sleeping hours - Reducing lighting at night - Ensuring patient has any sensory aids close by that he regularly uses - Continue Haloperidol 0.5 mg twice a day Seizure disorder: Continue home dose of Lamictal DVT ppx with IV heparin full code Problem List: 1. Atrial fibrillation, rapid 2. Cellulitis of lower extremity 3. Sepsis 4. Seizure disorder Pain Ratin Pain Location: none Pain Goal: Remain pain free Pain Plan: [facility] Tomorrow's Labs & Rationales: bep
--- NOTE | 2016-11-16 11:14 | PN- Att Addend ---
Attending MD Review Statement Attending Statement Attending MD Statement: examined this patient, discuss w/resident/PA/DIRECTOR HARDWARE, agreed w/resident/PA/DIRECTOR HARDWARE, reviewed EMR data (avail), discussed w/nursing, discussed w/ case mgmt Attending Assessment/Plan: Vital Signs Date Time Temp Pulse Resp B/P B/P Pulse O2 O2 Flow FiO2 Mean Ox Delivery Rate 11/16 0008 98.0 94 18 132/72 95 Room Air 11/15 2134 130 150/100 11/15 2134 132 150/100 11/15 1715 138/70 11/15 1606 97.6 86 17 95 Room Air Pt seen and examined at bedside. Afib with RVR- rates are better but pt refused to wear his monitor since 3-4 am this morning. d/w pt the need for monitoring and he is ok with putting it back. Cont on cardizem and metoprolol and titrate up as needed. CHF acute systolic- will get repeat limited echo per cardiology to evaluate the EF. switch lasix to po 40mg qam and 20mg qpm Cellulitis- switch iv abx to po keflex to see how he does on po abx. d/w pt the care plan. Pt expressing that he does not like to go back to [facility]. will d/w correctional case manager.
--- NOTE | 2016-11-16 12:45 | PN- Cardiology ---
Subjective Subjective: The patient has no complaints. He remains in atrial fibrillation. His rate is variable currently in the low 100s. He is on by mouth Cardizem and low-dose Lopressor. Objective Vital Signs and I&Os Vital Signs Date Time Temp Pulse Resp B/P B/P Pulse O2 O2 Flow FiO2 Mean Ox Delivery Rate 11/16 0008 98.0 94 18 132/72 95 Room Air 11/15 2134 130 150/100 11/15 2134 132 150/100 11/15 1715 138/70 11/15 1606 97.6 86 17 95 Room Air Intake & Output 11/16 1600 11/16 0800 11/16 0000 11/15 1600 11/15 0800 11/15 0000 Intake Total 120 450 480 100 200 Output Total 400 550 500 400 Balance -280 -100 480 -400 -200 Intake, Oral 120 450 480 100 200 Number 1 0 Bowel Movements Output, Urine 400 550 500 400 Physical Exam: He is in no distress HEENT exam normal Chest clear Heart irregular rhythm moderate rate Extremities resolving cellulitis Current Medications: Current Medications Sig/Jaqueline Start time Last Medication Dose Route Stop Time Status Admin Acetaminophen 650 MG Q6P PRN 11/09 2200 AC PO Apixaban 5 MG BID 11/13 1414 AC 11/17 PO 1043 Bisacodyl 10 MG DAILY NEEDED PRN 11/09 2200 AC DE Cephalexin 500 MG Q6H 11/17 1200 AC PO Cephalexin 500 MG Q6H 11/16 2100 DC 11/17 PO 0520 Cephalexin 500 MG Q6 11/16 1200 DC 11/16 PO 1455 Diltiazem HCl 120 MG BID 11/13 2200 AC 11/17 PO 1043 Furosemide 40 MG DAILY 11/17 1000 AC 11/17 PO 1044 Furosemide 20 MG 1400 11/16 1400 AC 11/16 PO 1242 Haloperidol 0.5 MG BID 11/12 1032 AC 11/17 PO 1043 Lamotrigine 100 MG DAILY 11/10 1000 AC 11/17 PO 1044 Magnesium Hydroxide 30 ML Q72H PRN 11/09 2200 AC PO Melatonin 5 MG AT BEDTIME 11/11 2200 AC 11/16 PO 2208 Melatonin 3 MG DAILY NEEDED PRN 11/09 2200 AC PO Metoprolol Tartrate 50 MG BID 11/17 1000 AC 11/17 PO 1044 Metoprolol Tartrate 25 MG BID 11/16 2200 DC 11/16 PO 2203 Metoprolol Tartrate 12.5 MG BID 11/15 0930 DC 11/16 PO 1049 Morphine Sulfate 1 MG Q4P PRN 11/09 2199 DC IV Oxycodone HCl 5 MG Q6P PRN 11/09 2200 DC PO Polyethylene Glycol 17 GM DAILY 11/09 2156 AC 11/17 PO 1044 Tetrahydrozoline HCl 1 GTT BID 11/14 2100 AC 11/17 OPH 1043 Results Last 48 Hrs of Labs/Mics: Laboratory Tests 11/17/16 0950: Sodium Pending, Potassium Pending, Chloride Pending, Carbon Dioxide Pending, Anion Gap Pending, BUN Pending, Creatinine Pending, BUN/Creatinine Ratio Pending 11/16/16 1331: Anion Gap 12, Estimated GFR 54 L, BUN/Creatinine Ratio 22.3, Magnesium 2.1 Assessment/Plan Assessment/Plan The patient remains in atrial fibrillation which is probably permanent. 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 His rate is now marginally better controlled. I recommend increasing his Lopressor to 25 mg twice daily. If this does not control his rate we can go up to 50 mg twice daily and/or increase Cardizem to 160 twice daily. He is scheduled for a limited echocardiogram today. Continue telemetry? Yes
[2016-11-16 16:24] VITALS: BP 126/80
[2016-11-16 22:00] VITALS: BP 128/82
[2016-11-17 07:00] VITALS: BP 118/70
--- NOTE | 2016-11-17 07:19 | PN- Housestaff ---
Subjective Follow-up For: b/l leg cellulitis; afib with RVR. Complaints: no complaints Tele-Events Since Last Visit: Atrial fibrillation, heart rate ranging from 81-125, with PVCs overnight. Subjective: I followed up and examined the patient today. He is resting comfortably in bed. He is still has patient safety monitor on as he was reported to have scissors the night before, was agitated and was trying to access the medicine cabinet then. No overnight events today though. Vitals have been stable otherwise. Review of Systems Constitutional: Reports: no symptoms. Objective Last 24 Hrs of Vital Signs/I&O Vital Signs Date Time Temp Pulse Resp B/P B/P Pulse O2 O2 Flow FiO2 Mean Ox Delivery Rate 11/17 1044 143 118/70 11/17 1043 143 118/70 11/17 0827 143 118/70 11/17 0700 98.9 98 20 118/70 93 Room Air 11/16 2203 93 128/82 11/16 2202 93 128/80 11/16 2200 98.8 93 16 128/82 94 Room Air 11/16 1624 97.9 66 20 126/80 94 Room Air Intake & Output 11/17 1600 11/17 0800 11/17 0000 Intake Total 200 Output Total 250 450 250 Balance -250 -250 -250 Intake, Oral 200 Output, Urine 250 450 250 Physical Exam General Appearance: Alert, Oriented X3, Cooperative, No Acute Distress Other Physical Findings: Cardiovascular: Regular Rate, Normal S1, Normal S2 Lungs: Clear to Auscultation, Normal Air Movement Abdomen: Normal Bowel Sounds, Soft, No Tenderness Extremities: No Clubbing, No Cyanosis, b/l lle edema 2+ Current Medications: Current Medications Sig/Jaqueline Start time Last Medication Dose Route Stop Time Status Admin Acetaminophen 650 MG Q6P PRN 11/09 2200 AC PO Apixaban 5 MG BID 11/13 1414 AC 11/17 PO 1043 Bisacodyl 10 MG DAILY NEEDED PRN 11/09 2200 AC DC Cephalexin 500 MG Q6H 11/17 1200 AC PO Cephalexin 500 MG Q6H 11/16 2100 DC 11/17 PO 0520 Cephalexin 500 MG Q6 11/16 1200 DC 11/16 PO 1455 Diltiazem HCl 120 MG BID 11/13 2200 AC 11/17 PO 1043 Furosemide 40 MG DAILY 11/17 1000 AC 11/17 PO 1044 Furosemide 20 MG 1400 11/16 1400 AC 11/16 PO 1242 Haloperidol 0.5 MG BID 11/12 1032 AC 11/17 PO 1043 Lamotrigine 100 MG DAILY 11/10 1000 AC 11/17 PO 1044 Magnesium Hydroxide 30 ML Q72H PRN 11/09 2200 AC PO Melatonin 5 MG AT BEDTIME 11/11 2200 AC 11/16 PO 2208 Melatonin 3 MG DAILY NEEDED PRN 11/09 2200 AC PO Metoprolol Tartrate 50 MG BID 11/17 1000 AC 11/17 PO 1044 Metoprolol Tartrate 25 MG BID 11/16 2200 DC 11/16 PO 2203 Metoprolol Tartrate 12.5 MG BID 11/15 0930 DC 11/16 PO 1049 Morphine Sulfate 1 MG Q4P PRN 11/09 2199 DC IV Oxycodone HCl 5 MG Q6P PRN 11/09 2199 DC PO Polyethylene Glycol 17 GM DAILY 11/09 2156 AC 11/17 PO 1044 Tetrahydrozoline HCl 1 GTT BID 11/14 2100 AC 11/17 OPH 1043 Last 24 Hrs of Lab/Bebo Results Last 24 Hrs of Labs/Mics: Laboratory Tests 11/17/16 0950: Anion Gap 11, Estimated GFR 59 L, BUN/Creatinine Ratio 24.2 11/16/16 1331: Anion Gap 12, Estimated GFR 54 L, BUN/Creatinine Ratio 22.3, Magnesium 2.1 Assessment/Plan Assessment: 76-year-old gentleman from [facility] with past medical history significant for seizure disorder on Lamictal, chronic lower extremity swelling, A. fib, CABG status post multiple stents placements, PPM, Cardiomyopathy, chronic ischemic heart disease, hypertension, heart failure, history of previous strokes, hyperlipidemia and paranoid delusions was sent by the facility for worsening right lower extremity cellulitis which was treated with 10 day course of Keflex (ended October 22) as outpatient. Found to be in A. fib with rapid ventricular rate , febrile with leukocytosis, no bandemia, elevated lactic acid,chest x-ray shows no acute pathology. UA neg for infection. In ED he was given 3 boluses of IV Cardizem after which IV Cardizem drip was started, IV heparin was also started. 1 L normal saline and one dose of IV Unasyn was given. Will admit him to the telemetry floor for A.fib with rapid ventricular response and outpatient failure of cellulitis. Problem list: A. anel with rapid ventricular rate Sepsis secondary to right lower extremity cellulitis Seizure disorder CHF Permanent pacemaker Chronic bilateral leg swelling Moderate peripheral vascular disease Hypertension Hyperlipidemia Psychosis/dementia Plan: Afib with RVR: Patient was initially started on IV heparin drip, along with IV Cardizem drip followed by oral Cardizem. * Continuous telemetry monitoring * Increased Metoprolol from 25mg BID to 50mg BID today. * Continue oral Cardizem 120 mg twice a day. * Can increase it to 160mg if rate is not well controlled. * Coaantinue Eliquis Cellulitis: Patient presented with right lower extremity, he was started on IV cefazolin 1 g every 8, remained afebrile, white count improved or his course of admission, leg swelling erythema improved. Blood cx no growth to date. Bilateral lower extremity Doppler negative. Patient was started on IV Lasix 40 mg, his lower extremity edema improved over time, but he has been very reluctant to elevate his legs. Was seen by wound care, recommendations are followed. * Getting better * Continue Cephalexin for a total abx of 10 days (day 9 today) * Po lasix 40 mg in Am and 20mg in PM for lower extremity edema. Paranoid Ideation: Patient presented with paranoid ideation, accusing government of poisoning him by giving him meds, on further investigation and psych evaluation it was revealed that patient has been holding this firm belief for a long time. Patient was started on Haloperidol 0.5 mg twice a day, along with recommendation of: -Avoiding nursing and medical procedures during sleep hours whenever possible - Cluster at night interventions that must be completed as much as possible to minimize sleep disruption - Decreasing noise in patient area during sleeping hours - Reducing lighting at night - Ensuring patient has any sensory aids close by that he regularly uses - Continue Haloperidol 0.5 mg twice a day Seizure disorder: Continue home dose of Lamictal Diet: Heart healthy diet DVT ppx with Eliquis full code Problem List: 1. Atrial fibrillation, rapid 2. Cellulitis of lower extremity Pain Ratin Pain Location: - Pain Goal: Pain 4 or less Pain Plan: prn Tomorrow's Labs & Rationales: -
--- NOTE | 2016-11-17 08:56 | NUR ---
PT REFUSING TO TAKE ALL MEDICATIONS. DR ROWAN MADE AWARE. PT STATES MEDS ARE "POISON" AND THEY MAKE HIM NOT SLEEP. STATES "HEAD IS BANGING". ENCOURAGED TAKING MEDS AND ATTEMPTED X 2 TO GIVE MEDS TO PT BUT REFUSED.
--- NOTE | 2016-11-17 09:11 | ECHOCARDIOGRAM REPORT ---
CINDY PALMER Age: 76 : 1940 Gender: M Exam Date: 11/16/2016 19:57 Exam Location: [address] Ht (in): 73 Wt (lb): 239 BSA: 2.39 BP: 132 / 72 Ordering Physician: MILVIA FARIAS MD Referring Physician: MILVIA FARIAS MD Technologist: Sierra Mullen CALLUM Room Number: 172 Indications: AFIB/FLUTTER Rhythm: Atrial fibrillation Technical Quality: FINDINGS Left Ventricle Left ventricular cavity size at the upper limits of normal. Mild concentric left ventricular hypertrophy. Global hypokinesis of the left ventricle noted. Estimated ejection fraction 30-35% visually. Right Ventricle Right ventricle not well visualized, grossly normal. Right Atrium Right atrium not well visualized, grossly normal. Left Atrium Mild left atrial dilatation. Mitral Valve The mitral valve leaflets are thickened. There is moderate mitral regurgitation. Aortic Valve Focal thickening of the aortic valve cusps.mild aortic regurgitation. Tricuspid Valve Structurally normal tricuspid valve. [id number] tricuspid regurgitation. Right ventricular systolic pressure estimated to be elevated at 45-50 mmHg. Pulmonic Valve Pulmonic valve not well visualized, grossly normal. Mild pulmonic regurgitation. Pericardium Minimal pericardial effusion (normal variant). Great Vessels Not assessed CONCLUSIONS This is a limited study for the assessment of left ventricular systolic function. Left ventricular cavity size at the upper limits of normal. Mild concentric left ventricular hypertrophy. Global hypokinesis of the left ventricle noted. Estimated ejection fraction 30-35% visually. Compared to the echocardiogram of 11/10/2016 there is probably no significant change in left ventricular systolic function. Milvia Farias M.D. (Electronically Signed) Final Date: 17 November 2016 09:11 MEASUREMENTS (Male / Female) Normal Values 2D ECHO LV Diastolic Diameter PLAX 5.2 cm 4.2 - 5.9 / 3.9 - 5.3 cm LV Systolic Diameter PLAX 4.3 cm 2.1 - 4.0 cm LV Fractional Shortening PLAX 17.3 % 25 - 46 % LV Ejection Fraction 2D Teich 35.9 % IVS Diastolic Thickness 1.1 cm LVPW Diastolic Thickness 1.1 cm LV Relative Wall Thickness 0.4 RV Internal Dim ED PLAX 3.1 cm 1.9 - 3.8 cm DOPPLER TR Peak Velocity 332.0 cm/s TR Peak Gradient 44.1 mmHg Right Atrial Pressure 10.0 mmHg Pulmonary Artery Systolic Pressu 54.1 mmHg Right Ventricular Systolic Press 54.1 mmHg
--- NOTE | 2016-11-17 11:21 | PN- Cardiology ---
Subjective Subjective: The patient remains in atrial fibrillation. His heart rates are still variable occasionally in the 120s to 140s. Lopressor was just increased to 50 mg twice daily. He remains on Cardizem 120 mg twice daily. Compliance is still an issue. He did have his repeat echocardiogram which still shows reduced left ventricular systolic function. This may take a while to recover if this is due to tachycardia induced cardiomyopathy. Objective Vital Signs and I&Os Vital Signs Date Time Temp Pulse Resp B/P B/P Pulse O2 O2 Flow FiO2 Mean Ox Delivery Rate 11/17 1044 143 118/70 11/17 1043 143 118/70 11/17 0827 143 118/70 11/17 0700 98.9 98 20 118/70 93 Room Air 11/16 2203 93 128/82 11/16 2202 93 128/80 11/16 2200 98.8 93 16 128/82 94 Room Air 11/16 1624 97.9 66 20 126/80 94 Room Air Intake & Output 11/17 1600 11/17 0800 11/17 0000 11/16 1600 11/16 0800 11/16 0000 Intake Total 200 400 120 450 Output Total 250 450 250 750 400 550 Balance -250 -250 -250 -350 -280 -100 Intake, Oral 200 400 120 450 Number 1 Bowel Movements Output, Urine 250 450 250 750 400 550 Physical Exam: HEENT exam is normal Chest is clear Heart reveals moderate rate irregular rhythm with no murmurs Extremities reveal improving erythema and cellulitis. Current Medications: Current Medications Sig/Jaqueline Start time Last Medication Dose Route Stop Time Status Admin Acetaminophen 650 MG Q6P PRN 11/09 2200 AC PO Apixaban 5 MG BID 11/13 1414 AC 11/17 PO 1043 Bisacodyl 10 MG DAILY NEEDED PRN 11/09 2200 AC VT Cephalexin 500 MG Q6H 11/17 1200 AC PO Cephalexin 500 MG Q6H 11/16 2100 DC 11/17 PO 0520 Cephalexin 500 MG Q6 11/16 1200 DC 11/16 PO 1455 Diltiazem HCl 120 MG BID 11/13 2200 AC 11/17 PO 1043 Furosemide 40 MG DAILY 11/17 1000 AC 11/17 PO 1044 Furosemide 20 MG 1400 11/16 1400 AC 11/16 PO 1242 Haloperidol 0.5 MG BID 11/12 1032 AC 11/17 PO 1043 Lamotrigine 100 MG DAILY 11/10 1000 AC 11/17 PO 1044 Magnesium Hydroxide 30 ML Q72H PRN 11/09 2200 AC PO Melatonin 5 MG AT BEDTIME 11/11 220 AC 11/16 PO 2208 Melatonin 3 MG DAILY NEEDED PRN 11/09 2199 AC PO Metoprolol Tartrate 50 MG BID 11/17 1000 AC 11/17 PO 1044 Metoprolol Tartrate 25 MG BID 11/16 2199 DC 11/16 PO 2203 Metoprolol Tartrate 12.5 MG BID 11/15 0930 DC 11/16 PO 1049 Morphine Sulfate 1 MG Q4P PRN 11/09 220 DC IV Oxycodone HCl 5 MG Q6P PRN 11/09 2199 DC PO Polyethylene Glycol 17 GM DAILY 11/09 2156 AC 11/17 PO 1044 Tetrahydrozoline HCl 1 GTT BID 11/14 2100 AC 11/17 OPH 1043 Results Last 48 Hrs of Labs/Mics: Laboratory Tests 11/17/16 0950: Sodium Pending, Potassium Pending, Chloride Pending, Carbon Dioxide Pending, Anion Gap Pending, BUN Pending, Creatinine Pending, BUN/Creatinine Ratio Pending 11/16/16 1331: Anion Gap 12, Estimated GFR 54 L, BUN/Creatinine Ratio 22.3, Magnesium 2.1 Recent Imaging Studies: CONCLUSIONS This is a limited study for the assessment of left ventricular systolic function. Left ventricular cavity size at the upper limits of normal. Mild concentric left ventricular hypertrophy. Global hypokinesis of the left ventricle noted. Estimated ejection fraction 30-35% visually. Compared to the echocardiogram of 11/10/2016 there is probably no significant change in left ventricular systolic function. Vishal Farias M.D. (Electronically Signed) Final Date: 17 November 2016 09:11 Assessment/Plan Assessment/Plan The patient remains in atrial fibrillation which is probably permanent. 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 His rate is now marginally better controlled. We will continue to monitor his heart rate and increase his Cardizem as necessary to further control heart rate. Digoxin could conceivably be added as well. Once his heart rate is controlled he should be able [facility]. Hopefully compliance will be better in the future. Continue telemetry? Yes
--- NOTE | 2016-11-17 13:11 | PN- Psychiatry ---
Assessment/Plan Impression: Identifying Info: 76-year-old male presents to [facility] emergency department on 11/09/2016 from [facility] for cellulitis to lower extremities. He has a known history of dementia with fixed paranoid delusions. Admitted to telemetry for treatment of sepsis and A. fib. SUBJECTIVE Patient states he is "alright." Interview with pacheco and conservator, Sade , at bedside. Today presents with continued complaitns r/t his glove turner and the government poisoning his medication to rot his teeth. States he would not be agreeable to and increase in haldol at this time. Pt's daughter asks if it is possible to "medically clear" the patient for dental surgery. Informed her I was unsure but would pass on to medical team. Brief ROS Gait: Not observed Sleep: Adequate Appetite: Adequate OBJECTIVE Mental Status Exam Presentation/Appearance: Cooperative with evaluation. Hospital garb. Calm. Sitting in bed eating lunch. Orientation: x4 Sensorium: Awake and alert Eye contact: Adequate Affect: Blunted Mood: "Alright"" Depression: Denies Anxiety: Denies Thought Content: - PI continues - Denies SI/HI, AH/VH. States and also believes they will not kill themselves. - Denies Hopeless/Helpless today Thought Process: Tangential, confused at times Associations: Somewhat loose Speech: Normal tone and rate Judgment: Poor Insight: Poor Cognition: Memory: Deficits Attention/Concentration: some impariment Fund of Knowledge: Adequate Abstractions: Unable to respond appropriately to question r/t MMSE: Did not assess Per nursing report the patient's has had no mood lability but refused his medications for most of the morning until MD spoke with him. ASSESSMENT 76-year-old is the male with a known history of dementia and fixed paranoid delusions that developed as his memory impairment became worse presents in the context of cellulitis, sepsis, and Afib due to his noncompliance with medication. At present paranoia continues but has been improved. Mood more stable. Thought process more linear. The patient would likely benefit from increased dosing of haldol however he refuses at this time. Depo injection may be indicated due to pattern of remission and noncompliance due to paranoia. Diagnosis Unspecified psychosis with paranoid delusions Unspecified neurocognitive disorder A total of 30 minutes was spent with the patient with more than 50% of the time spent in counseling and/or coordination of care. Suggestion: 1. Continue haldol at current dosing. Pt may benefit from increase but refuses at this time. Continue to monitor magnesium, potassium, and EKG. We will consider increase in dosing if needed. 2. Recommend psych service at [facility] consider haldol be transitioned to decanoate formulation in 2-3 weeks. Recommend plan to start injections at 25mg [id number] on an outpatient basis. 3. Please continue to avoid benzodiazepines, opioid analgesics, and meds with strong anticholinergic properties as much as possible to prevent further confusion. 4. Please continue the following nonpharmacologic interventions: -Avoid nursing and medical procedures during sleep hours whenever possible - Cluster at night interventions that must be completed as much as possible to minimize sleep disruption - Decrease noise patient area during sleeping hours - Reduce lighting at night - Ensure patient has any sensory aids close by that he regularly uses 5. If possible, please discuss with family the possibility of patient being medically cleared for dental surgery. Thank you for including psychiatry in this case we'll continue to follow throughout hospitalization. Subjective Subjective: as above Objective Last 24 Hrs of Vital Signs/I&O Current Medications Sig/Jaqueline Start time Last Medication Dose Route Stop Time Status Admin Acetaminophen 650 MG Q6P PRN 11/09 2200 AC PO Apixaban 5 MG BID 11/13 1414 AC 11/17 PO 1043 Bisacodyl 10 MG DAILY NEEDED PRN 11/09 2200 AC [place] Cephalexin 500 MG Q6H 11/17 1200 AC 11/17 PO 1213 Cephalexin 500 MG Q6H 11/16 2100 DC 11/17 PO 0520 Cephalexin 500 MG Q6 11/16 1200 DC 11/16 PO 1455 Diltiazem HCl 120 MG BID 11/13 2200 AC 11/17 PO 1043 Furosemide 40 MG DAILY 11/17 1000 AC 11/17 PO 1044 Furosemide 20 MG 1400 11/16 1400 AC 11/17 PO 1212 Haloperidol 0.5 MG BID 11/12 1032 AC 11/17 PO 1043 Lamotrigine 100 MG DAILY 11/10 1000 AC 11/17 PO 1044 Magnesium Hydroxide 30 ML Q72H PRN 11/09 2200 AC PO Melatonin 5 MG AT BEDTIME 11/11 2200 AC 11/16 PO 2208 Melatonin 3 MG DAILY NEEDED PRN 11/09 2199 AC PO Metoprolol Tartrate 50 MG BID 11/17 1000 AC 11/17 PO 1044 Metoprolol Tartrate 25 MG BID 11/16 2199 DC 11/16 PO 2203 Morphine Sulfate 1 MG Q4P PRN 11/09 2199 DC IV Oxycodone HCl 5 MG Q6P PRN 11/09 2199 DC PO Polyethylene Glycol 17 GM DAILY 11/09 2156 AC 11/17 PO 1044 Tetrahydrozoline HCl 1 GTT BID 11/14 2100 AC 11/17 OPH 1043 Laboratory Tests 11/17/16 0950: Anion Gap 11, Estimated GFR 59 L, BUN/Creatinine Ratio 24.2 11/16/16 1331: Anion Gap 12, Estimated GFR 54 L, BUN/Creatinine Ratio 22.3, Magnesium 2.1 Vital Signs Date Time Temp Pulse Resp B/P B/P Pulse O2 O2 Flow FiO2 Mean Ox Delivery Rate 11/17 1044 143 118/70 11/17 1043 143 118/70 11/17 0827 143 118/70 11/17 0700 98.9 98 20 118/70 93 Room Air 11/16 220 93 128/82 11/16 220 93 128/80 11/16 2199 98.8 93 16 128/82 94 Room Air 11/16 1624 97.9 66 20 126/80 94 Room Air Intake & Output 11/17 1600 11/17 0800 11/17 0000 Intake Total 200 Output Total 250 450 250 Balance -250 -250 -250 Intake, Oral 200 Output, Urine 250 450 250
--- NOTE | 2016-11-17 14:03 | PN- Att Addend ---
Attending MD Review Statement Attending Statement Attending MD Statement: examined this patient, discuss w/resident/PA/ASSEMBLER CONVERTIBLE TOP, agreed w/resident/PA/ASSEMBLER CONVERTIBLE TOP, reviewed EMR data (avail), discussed w/nursing, discussed w/ case mgmt Attending Assessment/Plan: Laboratory Tests 11/17/16 0950: Anion Gap 11, Estimated GFR 59 L, BUN/Creatinine Ratio 24.2 Vital Signs Date Time Temp Pulse Resp B/P B/P Pulse O2 O2 Flow FiO2 Mean Ox Delivery Rate 11/17 1044 143 118/70 11/17 1043 143 118/70 11/17 0827 143 118/70 11/17 0700 98.9 98 20 118/70 93 Room Air 11/16 2203 93 128/82 11/16 2202 93 128/80 11/16 2200 98.8 93 16 128/82 94 Room Air 11/16 1624 97.9 66 20 126/80 94 Room Air Pt seen and examined at bedside. Afib with RVR- rates are better but still going up at times. Cont on cardizem and metoprolol and titrate up as needed. Increase dose of metoprolol today to 50mg bid on 11/17. CHF acute systolic- Repeat echo done yesterday showed EF b/w 30-35%. cont on lasix po 40mg qam and 20mg qpm Cellulitis- po keflex Disposition- if HR better control tomorrow. plan dc back to [facility].
[2016-11-17 16:14] VITALS: BP 100/62
[2016-11-17 22:23] VITALS: BP 130/72
--- NOTE | 2016-11-18 05:05 | NUR ---
PT REFUSING TO WEAR HEART MONITOR, REFUSING TO TAKE AM MEDS (ABX), AND REFUSING TO HAVE RLE DRSG CHANGED/REAPPLIED. INFOMRED TRAY ROOM WORKER VIKY. NO FURTHER INSTRUCTIONS OR ORDERS AT THIS TIME. WILL CONTINUE TO MONITOR. DONOR SERVICES SPECIALIST REMAINS OUTSIDE ROOM.
--- NOTE | 2016-11-18 07:17 | PN- Housestaff ---
Subjective Follow-up For: Right Leg cellulitis Gurpreet tam with RVR Complaints: no complaints Tele-Events Since Last Visit: Gurpreet tam, heart rate between 77-131 Subjective: Patient seen and examined this morning. He was lying in bed in no acute distress. No acute overnight events reported. Vitals within normal limits, hemodynamics stable. Review of Systems Constitutional: Denies: chills, fever. Cardiovascular: Denies: chest pain, palpitations. Respiratory: Denies: cough, short of breath. Gastrointestinal: Denies: abdominal pain, constipation, diarrhea, nausea, vomiting. Objective Last 24 Hrs of Vital Signs/I&O Vital Signs Date Time Temp Pulse Resp B/P B/P Pulse O2 O2 Flow FiO2 Mean Ox Delivery Rate 11/18 0828 98.2 90 18 130/72 94 Room Air 11/17 2243 115 130/72 11/17 2242 115 130/72 11/17 2223 115 18 130/72 11/17 1614 97.7 94 20 100/62 93 Intake & Output 11/18 1600 11/18 0800 11/18 0000 Intake Total 240 600 Output Total Balance 240 600 Intake, Oral 240 600 Physical Exam General Appearance: Alert, Cooperative, No Acute Distress Cardiovascular: Regular Rate, Normal S1, Normal S2, No Murmurs Lungs: Clear to Auscultation, Normal Air Movement Abdomen: Normal Bowel Sounds, Soft, No Tenderness Extremities: b/l lle 2+ Current Medications: Current Medications Sig/Jaqueline Start time Last Medication Dose Route Stop Time Status Admin Acetaminophen 650 MG Q6P PRN 11/09 2200 AC PO Apixaban 5 MG BID 11/13 1414 AC 11/18 PO 1032 Bisacodyl 10 MG DAILY NEEDED PRN 11/09 2200 AC MT Cephalexin 500 MG Q6H 11/17 1200 AC 11/18 PO 1113 Diltiazem HCl 160 MG BID 11/18 1000 DC PO Diltiazem HCl 150 MG BID 11/18 1000 AC 11/18 PO 1113 Diltiazem HCl 120 MG BID 11/13 2200 DC 11/17 PO 2242 Furosemide 40 MG DAILY 11/17 1000 AC 11/18 PO 1032 Furosemide 20 MG 1400 11/16 1400 AC 11/17 PO 1212 Haloperidol 0.5 MG BID 11/12 1032 AC 11/18 PO 1032 Lamotrigine 100 MG DAILY 11/10 1000 AC 11/18 PO 1032 Magnesium Hydroxide 30 ML Q72H PRN 11/09 2200 AC PO Melatonin 5 MG AT BEDTIME 11/11 2200 AC 11/16 PO 2208 Melatonin 3 MG DAILY NEEDED PRN 11/09 2200 AC PO Metoprolol Tartrate 50 MG BID 11/17 1000 AC 11/18 PO 1032 Polyethylene Glycol 17 GM DAILY 11/09 2156 AC 11/18 PO 1032 Tetrahydrozoline HCl 1 GTT BID 11/14 2100 AC 11/18 OPH 1032 Assessment/Plan Assessment: 76-year-old gentleman from [facility] with past medical history significant for seizure disorder on Lamictal, chronic lower extremity swelling, A. fib, CABG status post multiple stents placements, PPM, Cardiomyopathy, chronic ischemic heart disease, hypertension, heart failure, history of previous strokes, hyperlipidemia and paranoid delusions was sent by the facility for worsening right lower extremity cellulitis which was treated with 10 day course of Keflex (ended October 22) as outpatient. Found to be in A. fib with rapid ventricular rate , febrile with leukocytosis, no bandemia, elevated lactic acid,chest x-ray shows no acute pathology. UA neg for infection. In ED he was given 3 boluses of IV Cardizem after which IV Cardizem drip was started, IV heparin was also started. 1 L normal saline and one dose of IV Unasyn was given. Will admit him to the telemetry floor for A.fib with rapid ventricular response and outpatient failure of cellulitis. Problem list: A. fib with rapid ventricular rate Sepsis secondary to right lower extremity cellulitis Seizure disorder CHF Permanent pacemaker Chronic bilateral leg swelling Moderate peripheral vascular disease Hypertension Hyperlipidemia Psychosis/dementia Plan: Afib with RVR: Patient was initially started on IV heparin drip, along with IV Cardizem drip followed by oral Cardizem. * Continuous telemetry monitoring * Continue Metoprolol 50mg BID * Continue oral Cardizem 160 mg twice a day. * Continue Eliquis Cellulitis: Patient presented with right lower extremity, he was started on IV cefazolin 1 g every 8, remained afebrile, white count improved or his course of admission, leg swelling erythema improved. Blood cx no growth to date. Bilateral lower extremity Doppler negative. Patient was started on IV Lasix 40 mg, his lower extremity edema improved over time, but he has been very reluctant to elevate his legs. Was seen by wound care, recommendations are followed. * Getting better * Continue Cephalexin to complete a ten-day course, last dose today. * Po lasix 40 mg in Am and 20mg in PM for lower extremity edema. Paranoid Ideation: Patient presented with paranoid ideation, accusing government of poisoning him by giving him meds, on further investigation and psych evaluation it was revealed that patient has been holding this firm belief for a long time. Patient was started on Haloperidol 0.5 mg twice a day, along with recommendation of: -Avoiding nursing and medical procedures during sleep hours whenever possible - Cluster at night interventions that must be completed as much as possible to minimize sleep disruption - Decreasing noise in patient area during sleeping hours - Reducing lighting at night - Ensuring patient has any sensory aids close by that he regularly uses - Continue Haloperidol 0.5 mg twice a day Seizure disorder: Continue home dose of Lamictal Diet: Heart healthy diet DVT ppx with Eliquis full code Problem List: 1. Atrial fibrillation, rapid 2. Cellulitis of lower extremity 3. Sepsis 4. Seizure disorder Pain Ratin Pain Location: none Pain Goal: Remain pain free Pain Plan: [facility] Tomorrow's Labs & Rationales: none
[2016-11-18 08:28] VITALS: BP 130/72
[2016-11-18] MEDS ORDERED: METOPROLOL TART50 M1 PO (10:48)
[2016-11-18] MEDS ORDERED: CARDIZEM60 M1 PO (10:48)
--- NOTE | 2016-11-18 10:58 | NUR ---
PT REFUSING TO TAKE ALL MEDICATIONS. STATING THEY ARE POISON. DR ALBINA SOLIS MADE AWARE
[2016-11-18] MEDS ORDERED: CEPHALEXIN500 M3 PO (11:23)
--- NOTE | 2016-11-18 13:00 | PN- Cardiology ---
Subjective Subjective: The patient appears comfortable. He remains in atrial fibrillation. His heart rate is now better controlled in the 60s to 80s with occasional backup ventricular pacing noted. According to the nurse he has been more compliant with taking his medications. He is now on diltiazem 160 mg twice daily and metoprolol 50 mg twice daily. Objective Vital Signs and I&Os Vital Signs Date Time Temp Pulse Resp B/P B/P Pulse O2 O2 Flow FiO2 Mean Ox Delivery Rate 11/19 827 98.2 90 18 130/72 94 Room Air 11/17 2242 115 130/72 11/17 224 115 130/72 11/17 2223 115 18 130/72 11/17 1614 97.7 94 20 100/62 93 Intake & Output 11/18 1600 11/18 0000 11/17 1600 11/18 0700 11/17 0000 Intake Total 240 600 200 Output Total 1450 450 250 Balance 240 600 -1450 -250 -250 Intake, Oral 240 600 200 Output, Urine 1450 450 250 Physical Exam: On physical he is comfortable sitting in a chair HEENT exam normal Chest clear Heart irregular, normal rate Extremities improving cellulitis Current Medications: Current Medications Sig/Jaqueline Start time Last Medication Dose Route Stop Time Status Admin Acetaminophen 650 MG Q6P PRN 11/09 2200 AC PO Apixaban 5 MG BID 11/13 1414 AC 11/18 PO 1032 Bisacodyl 10 MG DAILY NEEDED PRN 11/09 2200 AC OR Cephalexin 500 MG Q6H 11/17 1200 AC 11/18 PO 1113 Diltiazem HCl 160 MG BID 11/18 1000 DC PO Diltiazem HCl 150 MG BID 11/18 1000 AC 11/18 PO 1113 Diltiazem HCl 120 MG BID 11/13 2200 DC 11/17 PO 2242 Furosemide 40 MG DAILY 11/17 1000 AC 11/18 PO 1032 Furosemide 20 MG 1400 11/16 1400 AC 11/17 PO 1212 Haloperidol 0.5 MG BID 11/12 1032 AC 11/18 PO 1032 Lamotrigine 100 MG DAILY 11/10 1000 AC 11/18 PO 1032 Magnesium Hydroxide 30 ML Q72H PRN 11/09 2200 AC PO Melatonin 5 MG AT BEDTIME 11/11 2200 AC 11/16 PO 2208 Melatonin 3 MG DAILY NEEDED PRN 11/09 2200 AC PO Metoprolol Tartrate 50 MG BID 11/17 1000 AC 11/18 PO 1032 Polyethylene Glycol 17 GM DAILY 11/09 2156 AC 11/18 PO 1032 Tetrahydrozoline HCl 1 GTT BID 11/14 2100 AC 11/18 OPH 1032 Results Last 48 Hrs of Labs/Mics: Laboratory Tests 11/17/16 0950: Anion Gap 11, Estimated GFR 59 L, BUN/Creatinine Ratio 24.2 11/16/16 1331: Anion Gap 12, Estimated GFR 54 L, BUN/Creatinine Ratio 22.3, Magnesium 2.1 Assessment/Plan Assessment/Plan The patient remains in atrial fibrillation which is probably permanent. 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 His rate is now better controlled. He continues to have reduced left ventricular systolic function, which may take some time to recover if it is indeed due to tachycardia induced cardiomyopathy. From a cardiac standpoint the patient is stable for discharge back to the long-term. I would continue him on the same dose of medication and hopefully he will be compliant in the future. At some point in the future if he continues to have good rate control we will again repeat his echocardiogram to look at left ventricular systolic function. Continue telemetry? No
--- NOTE | 2016-11-18 15:39 | PN- Att Addend ---
Attending MD Review Statement Attending Statement Attending MD Statement: examined this patient, discuss w/resident/PA/[facility], agreed w/resident/PA/[facility], reviewed EMR data (avail), discussed w/nursing, discussed w/ case mgmt Attending Assessment/Plan: Vital Signs Date Time Temp Pulse Resp B/P B/P Pulse O2 O2 Flow FiO2 Mean Ox Delivery Rate 11/18 0828 98.2 90 18 130/72 94 Room Air 11/17 2243 115 130/72 11/17 2242 115 130/72 11/17 2223 115 18 130/72 11/17 1614 97.7 94 20 100/62 93 Pt seen and examined at bedside. Pt refused meds again today and took it after I talked to him. Also refused to wear his monitor again today but later during the day agreed to wear it. Afib with RVR- rates are better but still going up at times. Increased cardizem to 160mg bid on 11/18 and cont metoprolol at 50 bid. Increase dose of metoprolol to 50mg bid on 11/17. CHF acute systolic- Repeat echo done showed EF b/w 30-35%. cont on lasix po 40mg qam and 20mg qpm Cellulitis- po keflex Disposition- if HR better control tomorrow. plan dc back to [facility]. Tele strip showed rhythm strip with widened QRS on few beats. will review with cardiology the strips.
[2016-11-18 16:18] VITALS: BP 124/76
--- NOTE | 2016-11-18 17:17 | NUR ---
pt had [address] Lisa aware. BP 134/60. Asymptomatic. No further orders
[2016-11-19 00:04] VITALS: BP 136/72
--- NOTE | 2016-11-19 07:22 | PN- Housestaff ---
Subjective Follow-up For: Right Leg cellulitis Gurpreet tam with RVR Tele-Events Since Last Visit: Gurpreet tam, heart rate between 63-93 Subjective: Patient seen and examined this morning. He was lying in bed in no acute distress. Offers no complaints. He is to be discharged today to [facility], medically stable. Review of Systems Constitutional: Denies: chills, fever. Cardiovascular: Denies: chest pain, palpitations. Respiratory: Denies: cough, short of breath, sputum production. Gastrointestinal: Denies: abdominal pain, constipation, diarrhea, nausea, vomiting. Genitourinary: Denies: dysuria, frequency. Objective Last 24 Hrs of Vital Signs/I&O Vital Signs Date Time Temp Pulse Resp B/P B/P Pulse O2 O2 Flow FiO2 Mean Ox Delivery Rate 11/19 0800 97.0 55 18 128/74 94 Room Air 11/19 0004 97.9 100 20 136/72 95 Room Air 11/18 2253 116 132/76 11/18 1618 97.6 78 20 124/76 95 Room Air Physical Exam General Appearance: Alert, Oriented X3, Cooperative, No Acute Distress Cardiovascular: Regular Rate, Normal S1, Normal S2, No Murmurs Lungs: Clear to Auscultation, Normal Air Movement Abdomen: Normal Bowel Sounds, Soft, No Tenderness Extremities: No Clubbing, No Cyanosis, bilateral lower extremity edema 2+ Current Medications: Current Medications Sig/Jaqueline Start time Last Medication Dose Route Stop Time Status Admin Acetaminophen 650 MG Q6P PRN 11/09 2200 AC PO Apixaban 5 MG BID 11/13 1414 AC 11/19 PO 1116 Bisacodyl 10 MG DAILY NEEDED PRN 11/09 2200 AC NC Cephalexin 500 MG Q6H 11/17 1200 AC 11/19 PO 0610 Diltiazem HCl 360 MG DAILY 11/19 1000 AC 11/19 PO 1017 Diltiazem HCl 150 MG BID 11/18 1000 DC 11/18 PO 11/18 2300 2253 Furosemide 40 MG DAILY 11/17 1000 AC 11/19 PO 1017 Furosemide 20 MG 1400 11/16 1400 AC 11/18 PO 1716 Haloperidol 0.5 MG BID 11/12 1032 AC 11/19 PO 1116 Lamotrigine 100 MG DAILY 11/10 1000 AC 11/19 PO 1017 Magnesium Hydroxide 30 ML Q72H PRN 11/09 2200 AC PO Melatonin 5 MG AT BEDTIME 11/11 2200 AC 11/18 PO 2252 Melatonin 3 MG DAILY NEEDED PRN 11/09 2200 AC PO Metoprolol Tartrate 50 MG BID 11/17 1000 AC 11/19 PO 1116 Polyethylene Glycol 17 GM DAILY 11/09 2156 AC 11/19 PO 1018 Tetrahydrozoline HCl 1 GTT BID 11/14 2100 AC 11/19 OPH 1116 Assessment/Plan Assessment: 76-year-old gentleman from [facility] with past medical history significant for seizure disorder on Lamictal, chronic lower extremity swelling, A. fib, CABG status post multiple stents placements, PPM, Cardiomyopathy, chronic ischemic heart disease, hypertension, heart failure, history of previous strokes, hyperlipidemia and paranoid delusions was sent by the facility for worsening right lower extremity cellulitis which was treated with 10 day course of Keflex (ended October 22) as outpatient. Found to be in A. fib with rapid ventricular rate , febrile with leukocytosis, no bandemia, elevated lactic acid,chest x-ray shows no acute pathology. UA neg for infection. In ED he was given 3 boluses of IV Cardizem after which IV Cardizem drip was started, IV heparin was also started. 1 L normal saline and one dose of IV Unasyn was given. Will admit him to the telemetry floor for A.fib with rapid ventricular response and outpatient failure of cellulitis. Problem list: A. fib with rapid ventricular rate Sepsis secondary to right lower extremity cellulitis Seizure disorder CHF Permanent pacemaker Chronic bilateral leg swelling Moderate peripheral vascular disease Hypertension Hyperlipidemia Psychosis/dementia Plan: Afib with RVR: Patient was initially started on IV heparin drip, along with IV Cardizem drip followed by oral Cardizem. * Continuous telemetry monitoring * Continue Metoprolol 50mg BID * Continue oral Cardizem 160 mg twice a day. * Continue Eliquis Cellulitis: Patient presented with right lower extremity, he was started on IV cefazolin 1 g every 8, remained afebrile, white count improved or his course of admission, leg swelling erythema improved. Blood cx no growth to date. Bilateral lower extremity Doppler negative. Patient was started on IV Lasix 40 mg, his lower extremity edema improved over time, but he has been very reluctant to elevate his legs. Was seen by wound care, recommendations are followed. * Getting better * Continue Cephalexin to complete a ten-day course. * Po lasix 40 mg in Am and 20mg in PM for lower extremity edema. Paranoid Ideation: Patient presented with paranoid ideation, accusing government of poisoning him by giving him meds, on further investigation and psych evaluation it was revealed that patient has been holding this firm belief for a long time. Patient was started on Haloperidol 0.5 mg twice a day, along with recommendation of: -Avoiding nursing and medical procedures during sleep hours whenever possible - Cluster at night interventions that must be completed as much as possible to minimize sleep disruption - Decreasing noise in patient area during sleeping hours - Reducing lighting at night - Ensuring patient has any sensory aids close by that he regularly uses - Continue Haloperidol 0.5 mg twice a day Seizure disorder: Continue home dose of Lamictal Diet: Heart healthy diet DVT ppx with Eliquis full code Problem List: 1. Atrial fibrillation, rapid 2. Cellulitis of lower extremity 3. Sepsis 4. Seizure disorder Pain Ratin Pain Location: None Pain Goal: Remain pain free Pain Plan: Mild pain pathway Tomorrow's Labs & Rationales: None patient to be discharged Discharge Plan Discharge Disposition: STR/NH Stable for Discharge? Yes Anticipated Discharge (Day): today If Discharged Today/In 24 Hrs: W-10/discharge paper done, DC summary done, CMR done
[2016-11-19 08:00] VITALS: BP 128/74
[2016-11-19] MEDS ORDERED: CARDIZEM CD120 M2 PO ×2 (08:38→09:03)
[2016-11-19] MEDS ORDERED: HALOPERIDOL0.5 M1 PO ×2 (09:02→09:03)
[2016-11-19] MEDS ORDERED: ELIQUIS5 M1 PO ×2 (09:02→09:03)
[2016-11-19] MEDS ORDERED: CEPHALEXIN500 M3 PO ×2 (09:02→09:03)
[2016-11-19] MEDS ORDERED: METOPROLOL TART50 M1 PO (09:03)
[2016-11-19] MEDS ORDERED: CARDIZEM LA360 M1 PO (09:26)
[2016-11-19 11:43] VITALS: BP 128/74
--- NOTE | 2016-11-19 15:20 | PN- Att Addend ---
Attending MD Review Statement Attending Statement Attending MD Statement: examined this patient, discuss w/resident/PA/[facility], agreed w/resident/PA/[facility], reviewed EMR data (avail), discussed w/nursing, discussed w/ case mgmt Attending Assessment/Plan: Pt being dced to [facility]. Please see the dc summary for more details. pt is very non compliant with his meds and is very high risk for readmissions.
== END 2016-11-19 14:10 | DRG 871 ==
LOC: ERH 15:34 → 1NO 19:00 → ERHI 19:00 → ENRESERV 19:43 → ENTRNSPT 22:46 → 1NO 23:00 → CMPTRNSPT 23:01 → 1NO 11-10 08:06 → ENPENDDIS 11-19 10:10 → 1NO 11-19 14:10
PROVIDERS: Internal Medicine; Physician Assistant Medical; Student in an Organized Health Care Education/Training Program; ADMIT Student in an Organized Health Care Education/Training Program
DX: A41.9 Sepsis, unspecified organism (principal); I50.23 Acute on chronic systolic (congestive) heart failure; E87.2 Acidosis; I48.2 Chronic atrial fibrillation; I42.8 Other cardiomyopathies; L03.115 Cellulitis of right lower limb; N18.3 Chronic kidney disease, stage 3 (moderate); B35.1 Tinea unguium; I13.0 Hypertensive heart and chronic kidney disease with heart failure and stage 1 through stage 4 chronic kidney disease, or unspecified chronic kidney disease; I87.2 Venous insufficiency (chronic) (peripheral); I73.9 Peripheral vascular disease, unspecified; G40.909 Epilepsy, unspecified, not intractable, without status epilepticus; F20.9 Schizophrenia, unspecified; E66.9 Obesity, unspecified; I25.10 Atherosclerotic heart disease of native coronary artery without angina pectoris; E78.5 Hyperlipidemia, unspecified; Z95.1 Presence of aortocoronary bypass graft; Z87.891 Personal history of nicotine dependence; Z68.31 Body mass index [BMI] 31.0-31.9, adult; Z95.0 Presence of cardiac pacemaker
CPT/HCPCS: 1NP; 36415; 81001; 82436; 87040; 93005; 93010; 93308; 93321; 93970; 96374; 96375; 96376; 99291; C8929; J0131; J0690; J1644; J1940; Q9957